=== PATIENT | male | born 1940 | race African-American/Black ===

== ENCOUNTER 2016-08-27 11:32 | Emergency (ER) | payer OTHER, MEDICAID ==
[2016-08-27 11:38] VITALS: BP 131/69; BMI 30.1
--- NOTE | 2016-08-27 12:12 | DR.EXTPAIN ---
HPI - Time seen Time seen: 12:05 - PCP Primary Care Physician: FANI - HPI Comment HPI Comment: NO TRAUMA. GETTING WORSE. - Complaint/Symptoms Chief Complaint Doctor Comments: LEFT ELBOW PAIN, UNABLE TO RAISE ELBOW UP. Chief Complaint:: PT. C/O LEFT ARM PAIN. PT. DENIES INJURY. PAIN IS SHARP IN NATURE AND RADIATES DOWN TO HAND. PT. STATES HE THOUGHT IT WOULD GO AWAY BUT IT KEEPS GETTING WORSE. - Nurses notes reviewed Nurses Notes Review: Yes - Source History Provided: Patient, Significant Other - Mode of arrival Mode of Arrival: Wheelchair - Timing Onset of Chief Complaint: 08/13/16 - Context History of: Arthritis - Associated signs and symptoms Associated Signs and Symptoms: Pain, Swelling PMH - PMH Past Medical History: Yes Past Medical History: GERD Past Medical History Comment: CHRONIC BACK PAIN Past Surgical History: Yes Surgical History: Appendectomy, Other - Family History History of Family Medical Conditions: Yes Family Medical History: Cancer, [place] - Social History Does patient currently use any type of tobacco product: No Have you used tobacco products in the last 12 months: No Type of Tobacco Use: None Does any household member use tobacco: No Alcohol Use: None Do you use any recreational Drugs:: No Lives With: Significant Other Lives Where: Home - infectious screening In the last 2 months have you had wt loss of >10#?: NO Have you had fever, night sweats or hemotysis?: No Have you traveled outside the country in the last 6 months?: No Isolation: Standard ROS - Review of Systems Constitutional: No Symptoms Reported Eyes: No Symptoms Reported ENTM: No Symptoms Reported Respiratoy: No Symptoms Reported Cardiovascular: No Symptoms Reported Gastrointestinal/Abdominal: No Symptoms Reported Genitourinary: No Symptoms Reported Neurological: No Symptoms Reported Musculoskeletal: Left, Elbow Integumentary: No Symptoms Reported Hematologic/Lymphatic: No Symptoms Reported Endocrine: No Symptoms Reported All Other Systems: Reviewed and Negative PE - Vital Signs Vitals: Temperature 98.9 F Pulse Rate 81 Respiratory Rate 16 Blood Pressure 131/69 O2 Sat by Pulse Oximetry 96 - General Limitations: No Limitations General Appearance: Alert - Head Head Exam: Normal Inspection - Eyes Eye exam: Normal Appearance - ENT ENT Exam: Normal External Ear Exam - Neck Neck Exam: Trachea Midline - Chest Chest Inspection: Symmetric Chest Wall Rise - Respiratory Respiratory Exam: Normal Lung Sounds Bilat Respiratory Exam: Bilateral Clear to Auscultation - Cardiovascular Cardiovascular Exam: Regular Rate, Normal Rhythm, Normal Heart Sounds - Abdominal Exam Abdominal Exam: Normal Bowel Sounds, Soft. negative: Tenderness - Extremities Extremities Exam: Tenderness (LT ELBOW), Joint Swelling (LEFT ELBOW) - Upper Extremities Elbow Exam: Tenderness (LT), Swelling, Erythema. negative: Full ROM (DECREAS, LT ELBOW) - Lower Extremities Neurovascular/Tendon Exam: Normal Capillary Refill Gait Exam: Observed and Normal - Back Back Exam: Normal Inspection - Neurological Neurological Exam: Alert, Oriented X3 - Skin Skin Exam: Erythema MDM - Differential Diagnosis Differential Diagnosis: Contusion, Fracture, Sprain Course - Treatment Treatment: SEE ORDERS - Education/Counseling Education/Counseling: Patient, Education Educated On: Treatment, Diagnosis, Needs for Follow Up ROR - XRAY XRAY Interpreted by: Radiologist XRAY Findings: REPORT DISCUSS WITH PATIENT - Diagnosis Discharge Problem: Acute arthritis Bursitis of elbow Qualifiers: Elbow bursitis location: radiohumeral bursitis Laterality: left Qualified Code( s): M70.32 - Other bursitis of elbow, left elbow - Discharge Plan Disposition: HOME, SELF-CARE Condition: Stable Prescriptions: Tramadol HCl [Synapryn Fusepaq (compounding kit)] 50 mg PO BID PRN #14 tab PRN Reason: Pain - Follow ups/Referrals Follow ups/Referrals: DIONNE MOHR [Primary Care Provider] - 3 days - Instructions Instructions: Elbow Bursitis, Arthritis, [id number] Additional Instructions: RETURN TO ED IF WORSE.
[2016-08-27] MEDS ORDERED: TORADOL 60 MG VIAL ONE (12:20)
[2016-08-27] MEDS ORDERED: NORFLEX INJ ONE (12:20)
[2016-08-27] MEDS: NORFLEX INJ IM PRN (12:29)
[2016-08-27] MEDS: TORADOL 60 MG VIAL IM ONE (12:30)
--- NOTE | 2016-08-27 13:00 | RAD ---
HISTORY: Left arm pain Study: Three views left elbow Comparison: None Findings: Normal alignment. No acute fracture or dislocation. The soft tissues are unremarkable. No joint eff usion or abnormal soft tissue swelling. There are degenerative changes at the left elbow joint with prominent enthesophyte at the triceps insertion. IMPRESSION: 1. Degenerative changes of the left elbow without acute fracture. Reported By:
== END 2016-08-27 13:29 | disposition home or self-care (01) ==
LOC: ER 11:45
DX: M13.879 Other specified arthritis, unspecified ankle and foot (principal); M70.32 Other bursitis of elbow, left elbow
CPT/HCPCS: 73070; 96372; 99282; 99283; J1885; J2360

== ENCOUNTER 2016-09-18 22:45 | Emergency (ER) | payer OTHER, MEDICAID ==
[2016-09-18 22:49] VITALS: BP 167/88; BMI 29.2
--- NOTE | 2016-09-18 23:15 | DR.TOOTHHP ---
HPI - Time Seen Time seen: 23:12 - Primary Care Physician Primary Care Physician: tasneem fall - Complaints Chief Complaint:: right bottom back tooth pain times 1 hour - Source History Provided: Patient - Mode of Arrival Mode of Arrival: Wheelchair - Timing Onset of Chief Complaint: 09/18/16 PMH - PMH Past Medical History: Yes Past Medical History: GERD Past Surgical History: Yes Surgical History: Appendectomy, Other - Family History History of Family Medical Conditions: Yes Family Medical History: Cancer, [place] - Social History Type of Tobacco Use: None Alcohol Use: None Do you use any recreational Drugs:: No Lives With: Significant Other Lives Where: Home - infectious screening Have you traveled outside the country in the last 6 months?: No Isolation: Standard ROS - Review of Systems Constitutional: No Symptoms Reported Eyes: No Symptoms Reported ENTM: Mouth Pain Respiratoy: No Symptoms Reported Cardiovascular: No Symptoms Reported Gastrointestinal/Abdominal: No Symptoms Reported Genitourinary: No Symptoms Reported Neurological: No Symptoms Reported Musculoskeletal: No Symptoms Reported Integumentary: No Symptoms Reported Hematologic/Lymphatic: No Symptoms Reported Endocrine: No Symptoms Reported Psychiatric: No Symptoms Reported All Other Systems: Reviewed and Negative PE - Vital Signs Vitals: Temperature 98.4 F Pulse Rate 73 Respiratory Rate 20 Blood Pressure 167/88 O2 Sat by Pulse Oximetry 99 - General Limitations: No Limitations General Appearance: Alert, In No Apparent Distress - Head Head Exam: Normal Inspection, Atraumatic - Eyes Eye exam: Normal Appearance, PERRL, EOMI - ENT ENT Exam: Normal Exam External Ear Exam: Normal External Inspection TM/Canal Exam: Bilateral Normal Nose Exam: Normal Nose Exam Mouth Exam: Normal Inspection Teeth Exam: Fractured Tooth # (32), Dental Tenderness # (32) Throat Exam: Normal Inspection - Neck Neck Exam: Normal Inspection, Full ROM - Chest Chest Inspection: Normal Inspection - Respiratory Respiratory Exam: Normal Lung Sounds Bilat Respiratory Exam: Bilateral Clear to Auscultation - Cardiovascular Cardiovascular Exam: Regular Rate, Normal Rhythm - Abdominal Exam Abdominal Exam: Normal Inspection Abdominal Tenderness: negative: RUQ, RLQ, LUQ, LLQ, Epigastrium, Suprapubic, Diffuse, Mild, Moderate, Severe, Other - Extremities Extremities Exam: Normal Inspection - Back Back Exam: Normal Inspection - Neurologic Neurological Exam: Alert, Oriented X3, CN II-XII Intact - Psychiatric Psychiatric Exam: Normal Affect - Skin Skin Exam: Warm, Dry, Intact - Diagnosis Discharge Problem: Chronic dental pain - Discharge Plan Condition: Stable - Follow ups/Referrals Follow ups/Referrals: NFD,None [Primary Care Provider] - 3 days - Instructions
[2016-09-18] MEDS ORDERED: TORADOL 60 MG VIAL IM ONE (23:17)
[2016-09-18] MEDS ORDERED: AMOXIL CAP 500 MG PO ONE ×2 (23:17→23:21)
[2016-09-18] MEDS ORDERED: TORADOL 60 MG VIAL ONE (23:21)
== END 2016-09-18 23:45 | disposition home or self-care (01) ==
LOC: ER 22:45
DX: K08.89 Other specified disorders of teeth and supporting structures (principal)
CPT/HCPCS: 96372; 99282; J1885

== ENCOUNTER → 2016-11-23 | Outpatient (CLI) | payer OTHER, MEDICAID ==
[2016-11-23 09:10] LABS: BASOPHILS % (AUTO) 0.4 % (0.2-1.0); EOSINOPHILS # (AUTO) 0.2 x10^3/uL (0.0-0.2); EOSINOPHILS % (AUTO) 2.5 % (0.9-2.9); HEMATOCRIT 37.5 % (42.0-54.0); HEMOGLOBIN 12.5 g/dL (13.5-18.0); LYMPHOCYTES # (AUTO) 2.9 X10^3/uL (1.3-2.9); LYMPHOCYTES % (AUTO) 39.6 % (21.0-51.0); MEAN CORPUSCULAR HEMOGLOBIN 28.1 pg (27.0-34.0); MEAN CORPUSCULAR HGB CONC 33.5 g/dL (33.0-35.0); MEAN PLATELET VOLUME 10.3 fL (7.4-11.0); MONOCYTES # (AUTO) 0.6 x10^3/uL (0.3-0.8); MONOCYTES % (AUTO) 8.3 % (0.0-13.0); NEUTROPHILS # (AUTO) 3.6 x10^3/uL (2.2-4.8); NEUTROPHILS % (AUTO) 49.2 % (42.0-75.0); PLATELET COUNT 158 X10^3/uL (150.0-450.0); RED BLOOD COUNT 4.46 X10^6/uL (4.7-6.0); RED CELL DISTRIBUTION WIDTH 13.8 % (11.6-16.5); WHITE BLOOD COUNT 7.2 X10^3/uL (3.6-10.0)
[2016-11-23 09:17] LABS: HEMOGLOBIN A1C 6.2 % (4.5-6.2)
[2016-11-23 09:22] LABS: ALANINE AMINOTRANSFERASE 70 Units/L (12-78); ALBUMIN 3.3 g/dL (3.4-5.0); ALKALINE PHOSPHATASE 124 Units/L (46-116); ASPARTATE AMINO TRANSFERASE 34 Units/L (15-37); BLOOD UREA NITROGEN 19 mg/dL (7-18); CALCIUM 9.2 mg/dL (8.5-10.1); CARBON DIOXIDE 31.1 mmol/L (21-32); CHLORIDE 102 mmol/L (98-107); CHOL/HDL RATIO 5.7 (0.0-5.0); CHOLESTEROL 250 mg/dL (0-200); COR CA(FOR HYPOALB) 9.8 mg/dL (8.5-10.1); COR NA(FOR HYPERGLY) 140 mmol/L (136-145); CREATININE 1.42 mg/dL (0.70-1.30); GLUCOSE 134 mg/dL (65-99); HDL CHOLESTEROL 44 mg/dL (40-60); SODIUM 139 mmol/L (136-145); TOTAL PROTEIN 7.2 g/dL (6.4-8.2); TRIGLYCERIDES 208 mg/dL (0-150); eGFR BLACK RACES > 60 (>60); eGFR NON BLACK RACES 52 (>60)
[2016-11-23 09:51] LABS: TOTAL PSA 1.85 ng/mL (0.13-4.0)
== END ==
LOC: LAB 08:30
PROVIDERS: ATTEND Nurse Practitioner
DX: R73.09 Other abnormal glucose (principal); E78.00 Pure hypercholesterolemia, unspecified; R53.83 Other fatigue; N40.1 Benign prostatic hyperplasia with lower urinary tract symptoms; E55.9 Vitamin D deficiency, unspecified
CPT/HCPCS: 36415; 80053; 80061; 82306; 82607; 83036; 84153; 85025

== ENCOUNTER 2017-02-19 08:50 | Day surgery (SDC) | payer OTHER, MEDICAID ==
[2017-02-19] MEDS ORDERED: NS 500 ML IV 500 ML IV ONE (09:30)
[2017-02-19] MEDS ORDERED: TETRACAINE 0.5% OPHTH 1 DOSE AFFEYE ONE ×2 (09:50→13:41)
[2017-02-19] MEDS ORDERED: VIGAMOX 0.5% OPHTH 1 DOSE AFFEYE ONE ×6 (09:51→14:00)
[2017-02-19] MEDS ORDERED: PROLENSA OPHTH 1 DOSE AFFEYE ONE (10:03)
[2017-02-19] MEDS ORDERED: ALPHAGAN-P OPHTH 1 DOSE AFFEYE ONE (10:04)
[2017-02-19] MEDS ORDERED: VISINE-A OPHTH 1 DOSE AFFEYE ONE (10:05)
[2017-02-19] MEDS ORDERED: AK-DILATE 2.5% OPHTH 1 DOSE OP ONE ×6 (10:06→10:11)
[2017-02-19] MEDS ORDERED: CYCLOGYL 1% OPHTH 1 DOSE OP ONE ×6 (10:06→10:11)
[2017-02-19] MEDS ORDERED: MYDRIACIL OPHTH 1 DOSE AFFEYE ONE ×6 (10:06→10:11)
[2017-02-19] MEDS ORDERED: KENALOG INJ 40 MG IM ONE ×2 (13:38→13:59)
[2017-02-19] MEDS ORDERED: BETADINE OPHTH SOLN 5% EACHEYE ONE (13:42)
[2017-02-19] MEDS ORDERED: ADRENALINE CHL INJ IJ ONE (13:50)
[2017-02-19] MEDS ORDERED: XYLOCAINE-MPF 1% IJ ONE (13:50)
[2017-02-19] MEDS ORDERED: BSS OPHTH (PLAIN) 500 ML with VANCOMYCIN HCL 500 MG VIAL 25 MG, ADRENALINE CHL INJ 1 MG IR ONE ×3 (13:50)
[2017-02-19] MEDS ORDERED: DUOVISC IO ONE (13:50)
[2017-02-19 18:08] VITALS: BP 146/80
== END 2017-02-19 14:30 | disposition home or self-care (01) ==
LOC: SURG1 08:50
PROVIDERS: ATTEND Ophthalmology
PROC: 08DK3ZZ Extraction of Left Lens, Percutaneous Approach (ICD-10-PCS; principal; 2017-02-19 19:30)
PROC: 08U107Z Supplement of Left Eye with Autologous Tissue Substitute, Open Approach (ICD-10-PCS; principal; 2017-02-19 19:30)
PROC: 08RK3JZ Replacement of Left Lens with Synthetic Substitute, Percutaneous Approach (ICD-10-PCS; principal; 2017-02-19 19:30)
PROC: 08BTXZX Excision of Left Conjunctiva, External Approach, Diagnostic (ICD-10-PCS; principal; 2017-02-19 19:30)
DX: H25.12 Age-related nuclear cataract, left eye (principal); H25.012 Cortical age-related cataract, left eye; H11.002 Unspecified pterygium of left eye
CPT/HCPCS: 99100; A4217; J0170; J3301; J3370

== ENCOUNTER 2017-03-12 08:24 | Day surgery (SDC) | payer OTHER, MEDICAID ==
[2017-03-12] MEDS ORDERED: TETRACAINE 0.5% OPHTH 1 DOSE AFFEYE ONE ×2 (08:30→12:17)
[2017-03-12] MEDS ORDERED: VIGAMOX 0.5% OPHTH 1 DOSE AFFEYE ONE ×5 (08:35→12:37)
[2017-03-12] MEDS ORDERED: PROLENSA OPHTH 1 DOSE AFFEYE ONE (08:46)
[2017-03-12] MEDS ORDERED: ALPHAGAN-P OPHTH 1 DOSE AFFEYE ONE (08:47)
[2017-03-12] MEDS ORDERED: CYCLOGYL 1% OPHTH 1 DOSE OP ONE ×3 (08:48→08:50)
[2017-03-12] MEDS ORDERED: MYDRIACIL OPHTH 1 DOSE AFFEYE ONE ×3 (08:48→08:50)
[2017-03-12] MEDS ORDERED: AK-DILATE 2.5% OPHTH 1 DOSE OP ONE ×3 (08:49→08:50)
[2017-03-12] MEDS ORDERED: NS 500 ML IV 500 ML IV ONE (09:58)
[2017-03-12] MEDS ORDERED: BETADINE OPHTH SOLN 5% EACHEYE ONE (12:17)
[2017-03-12] MEDS ORDERED: BSS OPHTH (PLAIN) 500 ML with VANCOMYCIN HCL 500 MG VIAL 25 MG, ADRENALINE CHL INJ 1 MG IR ONE ×3 (12:21)
[2017-03-12] MEDS ORDERED: XYLOCAINE-MPF 1% IJ ONE (12:21)
[2017-03-12] MEDS ORDERED: DUOVISC IO ONE (12:21)
[2017-03-12] MEDS ORDERED: ADRENALINE CHL INJ IJ ONE (12:21)
[2017-03-12] MEDS ORDERED: KENALOG INJ 40 MG IM ONE ×2 (12:28→12:37)
[2017-03-12 13:35] VITALS: BP 133/82
== END 2017-03-12 13:00 | disposition home or self-care (01) ==
LOC: SURG1 08:24
PROVIDERS: ATTEND Ophthalmology
PROC: 08BSXZX Excision of Right Conjunctiva, External Approach, Diagnostic (ICD-10-PCS; principal; 2017-03-12 16:30)
PROC: 08RJ3JZ Replacement of Right Lens with Synthetic Substitute, Percutaneous Approach (ICD-10-PCS; principal; 2017-03-12 16:30)
PROC: 08DJ3ZZ Extraction of Right Lens, Percutaneous Approach (ICD-10-PCS; principal; 2017-03-12 16:30)
PROC: 08U007Z Supplement of Right Eye with Autologous Tissue Substitute, Open Approach (ICD-10-PCS; principal; 2017-03-12 16:30)
DX: H25.11 Age-related nuclear cataract, right eye (principal); H25.011 Cortical age-related cataract, right eye; H11.001 Unspecified pterygium of right eye
CPT/HCPCS: 99100; A4217; J0170; J3301; J3370

== ENCOUNTER 2017-06-12 21:55 | Emergency (ER) | payer OTHER, MEDICAID ==
[2017-06-12 22:12] VITALS: BP 147/74; BMI 33.4
[2017-06-12] MEDS ORDERED: DUONEB 0.5 MG/3 MG NEB ONE (23:01)
[2017-06-12] MEDS ORDERED: DUONEB 0.5 MG/3 MG ONE (23:02)
--- NOTE | 2017-06-12 23:28 | RAD ---
Chest, one view Indication: Cough, shortness of breath Comparison: CT chest 12/28/2014 Findings: Heart size is normal. No focal consolidation, significant effusion or pneumothorax is ident ified. No acute osseous abnormality is seen. Impression: No acute cardiopulmonary abnormality. Reported By:
[2017-06-12] MEDS ORDERED: SOLU-Medrol 40 MG VIAL IM ONE (23:57)
--- NOTE | 2017-06-12 23:58 | DR.GENAD ---
HPI - PCP Primary Care Physician: FANI - Complaint/Symptoms Chief Complaint Doctors Comments: Chest congestion, productive cough x 4 days. he was short of breath also but denies chesp pain. He admits to a hx. of COPD and has had no improvement with use of his home inhalers, Chief Complaint:: COUGHING COLD CONGESTION SINCE SATURDAY - Nurses notes reviewed Nurses Notes Review: Yes - Source History Provided: Patient - Mode of Arrival Mode of Arrival: Wheelchair - Timing Onset of Chief Complaint: 06/08/17 PMH - PMH Past Medical History: Yes Past Medical History: COPD, GERD Past Medical History Comment: CHRONIC BACK PAIN Past Surgical History: No Surgical History: Appendectomy, Other - Family History History of Family Medical Conditions: Yes Family Medical History: Cancer, [place] - Social History Do you use any recreational Drugs:: No Lives With: Alone, Family Lives Where: Home - infectious screening In the last 2 months have you had wt loss of >10#?: NO Have you had fever, night sweats or hemotysis?: No Have you traveled outside the country in the last 6 months?: No Isolation: Standard ROS - Review of Systems Constitutional: No Symptoms Reported Eyes: No Symptoms Reported ENTM: No Symptoms Reported Respiratoy: Productive Cough, Short of Breath Cardiovascular: No Symptoms Reported Gastrointestinal/Abdominal: No Symptoms Reported Genitourinary: No Symptoms Reported Neurological: No Symptoms Reported Musculoskeletal: No Symptoms Reported Integumentary: No Symptoms Reported Hematologic/Lymphatic: No Symptoms Reported Endocrine: No Symptoms Reported Psychiatric: No Symptoms Reported All Other Systems: Reviewed and Negative PE - Vital Signs Vitals: Temperature 97.2 F Pulse Rate 75 Respiratory Rate 24 Blood Pressure 147/74 O2 Sat by Pulse Oximetry 98 - General Limitations: No Limitations General Appearance: Alert, In No Apparent Distress - Head Head Exam: Normal Inspection - Eyes Eye exam: Normal Appearance - ENT ENT Exam: Normal Exam - Neck Neck Exam: Normal Inspection, Full ROM, Trachea Midline - Chest Chest Inspection: Normal Inspection - Respiratory Respiratory Exam: Bilateral Clear to Auscultation, Bilateral Rhonchi - Cardiovascular Cardiovascular Exam: Regular Rate, Normal Rhythm, +S1, +S2 - Abdominal Exam Abdominal Exam: Normal Inspection, Normal Bowel Sounds, Soft - Extremities Extremities Exam: Normal Inspection - Back Back Exam: Normal Inspection - Neurologic Neurological Exam: Alert, Oriented X3, CN II-XII Intact - Psychiatric Psychiatric Exam: Normal Affect, Normal Mood - Skin Skin Exam: Warm, Dry, Intact ROR - XRAY XRAY Interpreted by: Self (suggestive of COPD, no infiltrates noted.) - Diagnosis Discharge Problem: COPD (chronic obstructive pulmonary disease) with acute bronchitis - Discharge Plan Disposition: HOME, SELF-CARE Condition: Stable - Follow ups/Referrals Follow ups/Referrals: DIONNE MOHR [Primary Care Provider] - 3 days - Instructions Instructions: Chronic Obstructive Pulmonary Disease, [id number]
[2017-06-13] MEDS ORDERED: SOLU-Medrol 40 MG VIAL ONE (00:02)
== END 2017-06-13 00:10 | disposition home or self-care (01) ==
LOC: ER 21:55
DX: J44.1 Chronic obstructive pulmonary disease with (acute) exacerbation (principal)
CPT/HCPCS: 71045; 94640; 96372; 99282; J2920; J7620

== ENCOUNTER 2017-06-15 21:33 | Emergency (ER) | payer OTHER, MEDICAID ==
[2017-06-15 22:03] VITALS: BP 171/78; BMI 30.7
[2017-06-15] MEDS ORDERED: SOLU-Medrol 125 MG VIAL IVP ONE (22:07)
[2017-06-15] MEDS ORDERED: DUONEB 0.5 MG/3 MG NEB ONE ×2 (22:07→23:39)
--- NOTE | 2017-06-15 22:11 | DR.GENAD ---
HPI - PCP Primary Care Physician: FANI - Complaint/Symptoms Chief Complaint Doctors Comments: Patient states he is having problems breathing and catching his breath getting worst tonight. States he was in the emergency room two nights ago and was given a breathing treatment and one antibiotics and he was taking albuterol inhaler at home but he ran out today. States he was trying to wait unitl next week to see his doctor but he could not wait. States he gets SOB when he tries to do anything around the house. He has a cold and cough but denies fever or chills. He denies chest pain. Chief Complaint:: CAN'T BREATHE Self Treatment fo Chief Complaint: ALBUTERAL LAST TAKEN 30-60MINS AGO - Nurses notes reviewed Nurses Notes Review: Yes - Source History Provided: Patient - Mode of Arrival Mode of Arrival: Ambulatory - Timing Onset of Chief Complaint: 06/15/17 Came on: Gradually - Duration Duration: Constant How lon Duration: Days - Location Location: SOB and wheezing - Severity Severity: Moderate, Severe - Modifying Factors Worsens:: exertion Improves:: nothing PMH - PMH Past Medical History: Yes Past Medical History: COPD, GERD Past Surgical History: Yes Surgical History: Appendectomy, Other - Family History History of Family Medical Conditions: Yes Family Medical History: Cancer, [place] - Social History Does patient currently use any type of tobacco product: No Have you used tobacco products in the last 12 months: No Type of Tobacco Use: None How many years tobacco product used: 25 Does any household member use tobacco: No Alcohol Use: None Do you use any recreational Drugs:: No Lives With: Friend Lives Where: Home - infectious screening In the last 2 months have you had wt loss of >10#?: NO Have you had fever, night sweats or hemotysis?: No Have you traveled outside the country in the last 6 months?: No Isolation: Standard ROS - Review of Systems Constitutional: No Symptoms Reported, Weakness, Fatigue. negative: See HPI, Chills, Diaphoresis, Fever, Malaise, Irritable, Loss of Appetite, Other Eyes: No Symptoms Reported ENTM: No Symptoms Reported Respiratoy: Non-Productive Cough, Short of Breath, Wheezing. negative: No Symptoms Reported, See HPI, Productive Cough, Moist Cough, Dry Cough, Hacking Cough, Barking Cough, Brassy Cough, Orthopnea, Stridor, Hemoptysis, Other Cardiovascular: No Symptoms Reported. negative: See HPI, Chest Pain, Edema, Palpitations, Syncope, Cyanosis, Skin Mottling, Other Gastrointestinal/Abdominal: No Symptoms Reported. negative: See HPI, Abdominal Pain, Constipation, Diarrhea, Nausea, Vomiting, Food Intolerance, Other Genitourinary: No Symptoms Reported Neurological: No Symptoms Reported. negative: Problems Walking (wheel chair) Musculoskeletal: No Symptoms Reported Integumentary: No Symptoms Reported. negative: See HPI, Change in Color, Change in Hair/Nails, Dryness, Lesions, Lumps, Rash, Itching, Wound, Bruises, Juandice, Other Hematologic/Lymphatic: No Symptoms Reported. negative: See HPI, Anemia, Blood Clots, Easy Bleeding, Easy Bruising, Swollen Glands, Lymphadenopathy, Other Endocrine: No Symptoms Reported Psychiatric: No Symptoms Reported. negative: See HPI, Anxiety, Depression, Hallucinations, Excessive crying, Suicidal, Other PE - Vital Signs Vitals: Temperature 97.8 F Pulse Rate 55 Respiratory Rate 34 Blood Pressure 171/78 O2 Sat by Pulse Oximetry 94 - General Limitations: No Limitations General Appearance: Alert, In Distress (moderate) - Head Head Exam: Normal Inspection, Atraumatic, Normocephalic - Eyes Eye exam: Normal Appearance, PERRL, EOMI. negative: Scleral Icterus, Conjunctival Injection, Nystagmus, Miosis, Mydrasis, Periorbital Swelling, Periorbital Tenderness, Other - ENT ENT Exam: Normal Exam, Normal Oropharynx, Normal External Ear Exam, Mucous Membranes Moist, TM's Normal Bilaterally (severe dental caries) External Ear Exam: Normal External Inspection TM/Canal Exam: Bilateral Normal Nose Exam: Normal Nose Exam Mouth Exam: Normal Inspection Throat Exam: Normal Inspection - Neck Neck Exam: Normal Inspection, Full ROM, Trachea Midline - Chest Chest Inspection: Normal Inspection, Symmetric Chest Wall Rise - Respiratory Respiratory Exam: Normal Lung Sounds Bilat, Prolonged Expiratory Phase, Respiratory Distress (diffuse rhonchi bilaterally) Respiratory Exam: Bilateral Wheezing, Bilateral Rhonchi, Bilateral Decreased Breath Sounds - Cardiovascular Cardiovascular Exam: Regular Rate, Normal Rhythm, Normal Heart Sounds. negative : Bradycardia, Tachycardia, Irregular Rhythm, Systolic Murmur, Diastolic Murmur , Rubs, Gallop, Clicks, JVD, +S1, +S2, +S3, +S4, Other - Abdominal Exam Abdominal Exam: Normal Inspection, Normal Bowel Sounds, Soft. negative: Distention, Tenderness, Guarding, Rebound, Rigidity, Dimnished Bowel Sounds, Hyperactive Bowel Sounds, Hypoactive Bowel Sounds, Organomegaly, Trauma, Incision, Ascites, Mass, Bruit, Pulsatile Mass, Hernia, Other Abdominal Tenderness: negative: RUQ, RLQ, LUQ, LLQ, Epigastrium, Suprapubic, Diffuse, Mild, Moderate, Severe, Other - Extremities Extremities Exam: Normal Inspection, Full ROM, Normal Capillary Refill, Edema ( trace to 1+ pedal) - Back Back Exam: Normal Inspection, Full ROM - Neurologic Neurological Exam: Alert, Oriented X3, CN II-XII Intact, Reflexes Normal. negative: Normal Gait (gait not tested in motorized wheel chair) - Psychiatric Psychiatric Exam: Normal Affect, Normal Mood - Skin Skin Exam: Warm, Dry, Intact, Normal Color ROR - Labs Reviewed Laboratory Results Reviewed?: Yes (all labs and x-ray results reviewed and discussed with patient) Result Diagrams: 06/15/17 22:14 06/15/17 22:14 Laboratory: WBC 11.2 X10^3/uL (3.6-10.0) H 06/15/17 22:14 RBC 4.19 X10^6/uL (4.7-6.0) L 06/15/17 22:14 Hgb 11.6 g/dL (13.5-18.0) L 06/15/17 22:14 Hct 35.7 % (42.0-54.0) L 06/15/17 22:14 MCV 85.2 fL (80.0-100.0) 06/15/17 22:14 MCH 27.7 pg (27.0-34.0) 06/15/17 22:14 MCHC 32.5 g/dL (33.0-35.0) L 06/15/17 22:14 RDW 13.6 % (11.6-16.5) 06/15/17 22:14 Plt Count 200 X10^3/uL (150.0-450.0) 06/15/17 22:14 MPV 10.8 fL (7.4-11.0) 06/15/17 22:14 Neut % 56.1 % (42.0-75.0) 06/15/17 22:14 Lymph % 32.0 % (21.0-51.0) 06/15/17 22:14 [place] % 8.9 % (0.0-13.0) 06/15/17 22:14 Eos % 2.4 % (0.9-2.9) 06/15/17 22:14 Baso % 0.6 % (0.2-1.0) 06/15/17 22:14 Neut # 6.3 x10^3/uL (2.2-4.8) H 06/15/17 22:14 Lymph # 3.6 X10^3/uL (1.3-2.9) H 06/15/17 22:14 [place] # 1.0 x10^3/uL (0.3-0.8) H 06/15/17 22:14 Eos # 0.3 x10^3/uL (0.0-0.2) H 06/15/17 22:14 Baso # 0.1 X10^3/uL (0.0-0.1) 06/15/17 22:14 Absolute Nucleated RBC 0.1 /100WBC 06/15/17 22:14 Sodium 138 mmol/L (136-145) 06/15/17 22:14 Corrected Sodium TNP 06/15/17 22:14 Potassium 4.1 mmol/L (3.5-5.1) 06/15/17 22:14 Chloride 103 mmol/L (98-107) 06/15/17 22:14 Carbon Dioxide 32.0 mmol/L (21-32) 06/15/17 22:14 BUN 21 mg/dL (7-18) H 06/15/17 22:14 Creatinine 1.46 mg/dL (0.70-1.30) H 06/15/17 22:14 Est GFR (MDRD) Af Amer > 60 (>60) 06/15/17 22:14 Est GFR (MDRD) Non-Af 50 (>60) L 06/15/17 22:14 Glucose 94 mg/dL (65-99) 06/15/17 22:14 Calcium 9.1 mg/dL (8.5-10.1) 06/15/17 22:14 - XRAY XRAY Interpreted by: Radiologist (CXR; No acute cardiopulmonary changes noted) - Diagnosis Discharge Problem: COPD with acute exacerbation, Bronchitis, COPD (chronic obstructive pulmonary disease) with acute bronchitis - Discharge Plan Disposition: 01 HOME, SELF-CARE Condition: Stable Prescriptions: Albuterol Sulfate [Proair Hfa] 8.5 gm IH Q4-6H PRN #1 hfa.aer.[id number] PRN Reason: Budesonide-Formoterol [SYMBICORT INH 160/4.5 mcg] 2 puff IN Q12H #1 inh Ciprofloxacin HCl [CIPRO 500 MG TAB *] 500 mg PO Q12H #20 tab Prednisone [Prednisone Tab 20 mg] 40 mg PO QAM #7 tab - Follow ups/Referrals Follow ups/Referrals: JUAN PABLO,Inez [Primary Care Provider] - 3 days DIONNA PHILLIPS [STAFF PHYSICIAN] - 3 days - Instructions Instructions: Chronic Obstructive Pulmonary Disease Exacerbation, Hnpy-[id number] , Acute Bronchitis, [id number], Metered Dose Inhaler (No Spacer Used)
[2017-06-15] MEDS ORDERED: DUONEB 0.5 MG/3 MG ONE ×2 (22:13→23:43)
[2017-06-15 22:25] LABS: BASOPHILS # (AUTO) 0.1 X10^3/uL (0.0-0.1); BASOPHILS % (AUTO) 0.6 % (0.2-1.0); EOSINOPHILS # (AUTO) 0.3 x10^3/uL (0.0-0.2); EOSINOPHILS % (AUTO) 2.4 % (0.9-2.9); HEMATOCRIT 35.7 % (42.0-54.0); HEMOGLOBIN 11.6 g/dL (13.5-18.0); LYMPHOCYTES # (AUTO) 3.6 X10^3/uL (1.3-2.9); MEAN CORPUSCULAR HEMOGLOBIN 27.7 pg (27.0-34.0); MEAN CORPUSCULAR HGB CONC 32.5 g/dL (33.0-35.0); MEAN CORPUSCULAR VOLUME 85.2 fL (80.0-100.0); MEAN PLATELET VOLUME 10.8 fL (7.4-11.0); MONOCYTES % (AUTO) 8.9 % (0.0-13.0); NEUTROPHILS # (AUTO) 6.3 x10^3/uL (2.2-4.8); NEUTROPHILS % (AUTO) 56.1 % (42.0-75.0); PLATELET COUNT 200 X10^3/uL (150.0-450.0); RED BLOOD COUNT 4.19 X10^6/uL (4.7-6.0); RED CELL DISTRIBUTION WIDTH 13.6 % (11.6-16.5); WHITE BLOOD COUNT 11.2 X10^3/uL (3.6-10.0)
[2017-06-15] MEDS ORDERED: SOLU-Medrol 125 MG VIAL ONE (22:25)
--- NOTE | 2017-06-15 22:33 | RAD ---
AP Chest Indication: Shortness of breath Comparison: 06/13/2017 Findings: The trachea is midline. The cardiac silhouette is unremarkable. The lungs are clear without focal i nfiltrate or effusion. The bony thorax is unremarkable. IMPRESSION: 1. No acute cardiopulmonary abnormality. Reported By:
[2017-06-15 22:39] LABS: BLOOD UREA NITROGEN 21 mg/dL (7-18); CALCIUM 9.1 mg/dL (8.5-10.1); CHLORIDE 103 mmol/L (98-107); CREATININE 1.46 mg/dL (0.70-1.30); SODIUM 138 mmol/L (136-145); eGFR BLACK RACES > 60 (>60); eGFR NON BLACK RACES 50 (>60)
[2017-06-15] MEDS ORDERED: LEVAQUIN TAB 500 MG ONE (23:40)
[2017-06-15] MEDS ORDERED: LEVAQUIN TAB 500 MG PO SCH (23:45)
== END 2017-06-16 00:12 | disposition home or self-care (01) ==
LOC: ER 21:33
DX: J44.1 Chronic obstructive pulmonary disease with (acute) exacerbation (principal); J40 Bronchitis, not specified as acute or chronic
CPT/HCPCS: 36415; 71045; 80048; 85025; 94640; 96365; 96374; 99282; 99283; A4222; J2930; J7620

== ENCOUNTER 2018-03-09 18:56 | Inpatient (IN) ==
[2018-03-09] MEDS ORDERED: DUONEB 0.5 MG/3 MG ONE (19:32)
[2018-03-09] MEDS ORDERED: LASIX IVP ONE ×2 (19:42→19:43)
[2018-03-09] MEDS ORDERED: DUONEB 0.5 MG/3 MG NEB ONE (19:51)
[2018-03-09 20:12] LABS: BASOPHILS # (AUTO) 0.1 X10^3/uL (0.0-0.1); BASOPHILS % (AUTO) 0.9 % (0.2-1.0); EOSINOPHILS # (AUTO) 0.3 x10^3/uL (0.0-0.2); EOSINOPHILS % (AUTO) 2.9 % (0.9-2.9); HEMOGLOBIN 12.3 g/dL (13.5-18.0); LYMPHOCYTES # (AUTO) 2.3 X10^3/uL (1.3-2.9); LYMPHOCYTES % (AUTO) 22.7 % (21.0-51.0); MEAN CORPUSCULAR HEMOGLOBIN 28.6 pg (27.0-34.0); MEAN CORPUSCULAR HGB CONC 33.2 g/dL (33.0-35.0); MEAN CORPUSCULAR VOLUME 86.2 fL (80.0-100.0); MEAN PLATELET VOLUME 11.3 fL (7.4-11.0); MONOCYTES % (AUTO) 9.2 % (0.0-13.0); NEUTROPHILS # (AUTO) 6.7 x10^3/uL (2.2-4.8); NEUTROPHILS % (AUTO) 64.3 % (42.0-75.0); PLATELET COUNT 163 X10^3/uL (150.0-450.0); RED BLOOD COUNT 4.29 X10^6/uL (4.7-6.0); RED CELL DISTRIBUTION WIDTH 14.7 % (11.6-16.5); WHITE BLOOD COUNT 10.4 X10^3/uL (3.6-10.0)
[2018-03-09 20:23] LABS: BLOOD UREA NITROGEN 11 mg/dL (7-18); CALCIUM 8.7 mg/dL (8.5-10.1); CHLORIDE 105 mmol/L (98-107); CREATININE 1.53 mg/dL (0.70-1.30); SODIUM 140 mmol/L (136-145); TROPONIN I 0.06 ng/mL (0-1.5); eGFR NON BLACK RACES 47 (>60)
[2018-03-09 20:29] LABS: B-TYPE NATRIURETIC PEPTIDE 136 pg/mL (0-79)
[2018-03-09 20:47] LABS: CKMB % 1.7 % (<4); CREATINE KINASE 289 Units/L (39-308)
[2018-03-09 21:16] LABS: ABG BASE EXCESS 6.1 mmol/L (-2.0-2.0)
[2018-03-09 21:17] LABS: ABG ALLEN TEST POS; ABG HCO3 30.6 mmol/L (22-26); FRACTIONATED INSPIRED OXYGEN 21
--- NOTE | 2018-03-09 22:44 | RAD ---
Indication: Shortness of breath Exam: Portable chest Comparison: 06/15/2017 Findings: The heart is normal. The pulmonary vessels are normal. The lungs are hyperinflated and ther e is a small right pleural effusion with hazy right basilar opacity. No pneumothorax is seen. Impression: Probable mild right basilar atelectasis and a small right pleural effusion which is more prominent. Reported By:
--- NOTE | 2018-03-09 23:09 | DR.SOBA ---
HPI Time Seen Time Seen by Provider: 03/09/18 22:47 Primary Care Physician Primary Care Physician: ROSE ALFARO IN [place] HPI Comment HPI Comment: GETTING WORSE. NEB TREATMENT GIVEN BY EMS ON THE WAY TO ED. NO FEVER. PRODUCTIVE COUGH, YELLOW SPUTUM. CHEST PAIN PLEURITIC WITH TIGHTNESS. PATIENT HAD 3 PLUS EDMA LOWER EXTREMITIES. Complaints Chief Complaint Doctors Comments: INCREASING SOB WITH AUDIBLE WHEEZING TIMES FEW HOURS. Chief Complaint:: EMS RESPONDED TO CALL FOR SHORT OF BREATH, UPON ARRIVAL VS WERE 161/81 O2 SAT WAS 92% HR 98. EMS GAVE PT BREATHING TREATMENT O2 SAT AT 100%. PT ALERT AND ORIENTED TIMES 3. WHEEZING NOT BILATERAL. Self Treatment fo Chief Complaint: CALLED 911 FOR ASSISTANCE. PT STATES SOB STARTED 03/08/18 AT NIGHT TIME. CONTINUE TO GET OWRSE. Reviewed Nurses Notes Reviewed: Yes Source History Provided: Patient Mode of Arrival Mode of Arrival: Stretcher Timing Onset of Chief Complaint: 03/09/18 Duration Duration: Days Context Onset:: At Rest and With Light Exertion PE Risk Factors:: None History of:: COPD and CHF Prehospital Care:: Injected B2; denies Intubation Modifying Factors Worsens:: Nothing Improves:: Nothing Associated Signs and Symptoms Associated Signs and Symptoms: Wheeze and Cough If Chest Pain Quality: Pleuritic (TIGHTNESS, ) Location: Right Lower Chest, Left Upper Chest and Left Lower Chest If Cough Cough: Nonproductive and Yellow PMH PMH Past Medical History: Yes Past Medical History: COPD, GERD and Hypertension Past Surgical History: Yes Surgical History: Appendectomy and Other Family History History of Family Medical Conditions: Yes Family Medical History: Cancer and [place] Social History Does any household member use tobacco: No Alcohol Use: None Do you use any recreational Drugs:: No Lives With: Alone Lives Where: Home infectious screening In the last 2 months have you had wt loss of >10#?: NO Have you had fever, night sweats or hemotysis?: No Have you traveled outside the country in the last 6 months?: No Isolation: Standard ROS Review of Systems Constitutional: Weakness and Fatigue Eyes: No Symptoms Reported ENTM: Nose Congestion Respiratoy: Productive Cough, Short of Breath and Wheezing Cardiovascular: Chest Pain and Edema Gastrointestinal/Abdominal: Nausea Genitourinary: No Symptoms Reported Neurological: Weakness Musculoskeletal: Muscle Pain Integumentary: Dryness Hematologic/Lymphatic: Easy Bleeding and Easy Bruising Endocrine: No Symptoms Reported Psychiatric: No Symptoms Reported Unable to Obtain Due To: Altered mental status PE Vital Signs Vitals: Temperature 97.9 F Pulse Rate [Right Brachial] 109 Pulse Rate 98 Respiratory Rate 30 Blood Pressure [Right Arm] 144/83 Blood Pressure 172/97 O2 Sat by Pulse Oximetry 96 General Limitations: No Limitations General Appearance: Alert and In Distress Head Head Exam: Normal Inspection and Atraumatic Eyes Eye exam: Normal Appearance, PERRL and EOMI; negative Scleral Icterus and Conjunctival Injection ENT ENT Exam: Normal Exam, Normal Oropharynx, Normal External Ear Exam and TM's Normal Bilaterally Neck Neck Exam: Normal Inspection and Trachea Midline Chest Chest Inspection: Symmetric Chest Wall Rise Respiratory Respiratory Exam: Respiratory Distress Respiratory Exam: Bilateral: Wheezing and Bilateral: Rhonchi, Upper: Wheezing and Upper: Rhonchi and Lower: Wheezing and Lower: Rhonchi Cardiovascular Cardiovascular Exam: Regular Rate and Normal Rhythm Abdominal Exam Abdominal Exam: Normal Inspection, Normal Bowel Sounds and Soft; negative Tenderness Extremities Extremities Exam: Edema Back Back Exam: Normal Inspection Neurologic Neurological Exam: Alert, Oriented X3 and CN II-XII Intact; negative Motor Sensory Deficit Psychiatric Psychiatric Exam: Normal Affect and Normal Mood Skin Skin Exam: Dry and Erythema MDM Differential Diagnosis Differential Diagnosis: CHF, COPD, Mycardial Infarction, Pneumonia, Pneumothorax, Pulmonary embolism and Respiratory Insufficiency COURSE Treatment Treatment: SEE 0RDERS. Consultation Consultation Comments: DISCUSS PATIENT WITH DR. BUTLER. HE WILL ADMIT PATIENT. Education/Counseling Education/Counseling: Patient and Education Educated On: Diagnosis ROR Labs Reviewed Laboratory Results Reviewed?: Yes Result Diagrams: 03/09/18 20:00 03/09/18 20:00 Laboratory: WBC 10.4 X10^3/uL (3.6-10.0) H 03/09/18 20:00 RBC 4.29 X10^6/uL (4.7-6.0) L 03/09/18 20:00 Hgb 12.3 g/dL (13.5-18.0) L 03/09/18 20:00 Hct 37.0 % (42.0-54.0) L 03/09/18 20:00 MCV 86.2 fL (80.0-100.0) 03/09/18 20:00 MCH 28.6 pg (27.0-34.0) 03/09/18 20:00 MCHC 33.2 g/dL (33.0-35.0) 03/09/18 20:00 RDW 14.7 % (11.6-16.5) 03/09/18 20:00 Plt Count 163 X10^3/uL (150.0-450.0) 03/09/18 20:00 MPV 11.3 fL (7.4-11.0) H 03/09/18 20:00 Neut % (Auto) 64.3 % (42.0-75.0) 03/09/18 20:00 Lymph % (Auto) 22.7 % (21.0-51.0) 03/09/18 20:00 [place] % (Auto) 9.2 % (0.0-13.0) 03/09/18 20:00 Eos % (Auto) 2.9 % (0.9-2.9) 03/09/18 20:00 Baso % (Auto) 0.9 % (0.2-1.0) 03/09/18 20:00 Neut # (Auto) 6.7 x10^3/uL (2.2-4.8) H 03/09/18 20:00 Lymph # (Auto) 2.3 X10^3/uL (1.3-2.9) 03/09/18 20:00 [place] # (Auto) 1.0 x10^3/uL (0.3-0.8) H 03/09/18 20:00 Eos # (Auto) 0.3 x10^3/uL (0.0-0.2) H 03/09/18 20:00 Baso # (Auto) 0.1 X10^3/uL (0.0-0.1) 03/09/18 20:00 Absolute Nucleated RBC 0.0 /100WBC 03/09/18 20:00 D-Dimer 1390 ng/mL (0-400) H* 03/10/18 00:24 Sample Site Right radial 03/09/18 21:00 ABG pH 7.460 (7.35-7.45) H 03/09/18 21:00 ABG pCO2 43.0 mmHg (35.0-45.0) 03/09/18 21:00 ABG pO2 82.0 mmHg (80.0-100.0) 03/09/18 21:00 ABG HCO3 30.6 mmol/L (22-26) H* 03/09/18 21:00 ABG O2 Saturation 97.0 % (90-100) 03/09/18 21:00 ABG Base Excess 6.1 mmol/L (-2.0-2.0) H 03/09/18 21:00 Yvon Test Pos 03/09/18 21:00 A-a Gradient 14.0 mmHg 03/09/18 21:00 FiO2 21 03/09/18 21:00 Blood Gas Comments Thony well jts 03/09/18 21:00 Sodium 140 mmol/L (136-145) 03/09/18 20:00 Corrected Sodium TNP 03/09/18 20:00 Potassium 3.8 mmol/L (3.5-5.1) 03/09/18 20:00 Chloride 105 mmol/L (98-107) 03/09/18 20:00 Carbon Dioxide 32.0 mmol/L (21-32) 03/09/18 20:00 BUN 11 mg/dL (7-18) 03/09/18 20:00 Creatinine 1.53 mg/dL (0.70-1.30) H 03/09/18 20:00 Est GFR (MDRD) Af Amer 57 (>60) L 03/09/18 20:00 Est GFR (MDRD) Non-Af 47 (>60) L 03/09/18 20:00 Glucose 96 mg/dL (65-99) 03/09/18 20:00 Calcium 8.7 mg/dL (8.5-10.1) 03/09/18 20:00 Creatine Kinase 241 Units/L (39-308) 03/10/18 00:24 CK-MB (CK-2) 4.3 ng/mL (0-4.0) H* 03/10/18 00:24 CK/CKMB % Calc 1.8 % (<4) 03/10/18 00:24 Troponin I 0.04 ng/mL (0-1.5) 03/10/18 00:24 B-Natriuretic Peptide 136 pg/mL (0-79) H 03/09/18 20:00 XRAY XRAY Interpreted by: Radiologist XRAY Findings: REPORT DISCUSS WITH PATIENT. EKG Rate: 87 Adkins: Normal Rhythm: NSR and PACs Hypertrophy: LAE ST: Old and Infarct Diagnosis Discharge Problem: Adult respiratory distress syndrome, COPD exacerbation Edema Qualifiers: Edema type: unspecified Qualified Code(s): R60.9 - Edema, unspecified
[2018-03-10 01:12] LABS: CKMB % 1.8 % (<4); TROPONIN I 0.04 ng/mL (0-1.5)
[2018-03-10 01:14] LABS: CREATINE KINASE MB 4.3 ng/mL (0-4.0)
[2018-03-10] MEDS ORDERED: SOLU-Medrol 125 MG VIAL IVP ONE (01:31)
[2018-03-10] MEDS ORDERED: SOLU-Medrol 125 MG VIAL ONE (01:31)
[2018-03-10] MEDS ORDERED: NS 100 ML IV 100 ML IV ONE (01:32)
--- NOTE | 2018-03-10 02:16 | CT ---
CTA chest Indication: Elevated D-dimer, shortness of breath Technique: Helical CT images of the chest were obtained with IV contrast. Reformatted images in the c oronal and sagittal planes and 3D MIP images were also generated for review. Comparison: CT chest 12/28/2014 Findings: Contrast bolus timing is adequate for detection of PTE. No pulmonary thromboembolus is iden tified. There is no pulmonary arterial dilatation or evidence of right heart strain. The heart is nor mal in size without pericardial effusion. And proximal great vessels are normal in contour and calibe r. The central airways are patent. There is no mediastinal or bulky hilar lymphadenopathy. There is mild peribronchial thickening and patchy peribronchial ground-glass opacities within the marina ateral lower lobes. There is a 2-3 mm nodule within the right upper lobe on image 16, series 4 which is unchanged in 2015 and is most certainly benign. The remainder of the lungs are clear. No significa nt pleural effusion or pneumothorax is identified. A small sliding hiatal hernia and cholelithiasis noted. Limited arterial phase images of the upper ab domen otherwise demonstrate no acute abnormality. No aggressive osseous lesions are identified. Impression: No PTE identified. Peribronchial thickening and patchy bilateral lower lobe peribronchial ground-glass opacities, sugges tive for bronchitis and developing bronchopneumonia. Reported By:
[2018-03-10] MEDS ORDERED: ROCEPHIN VIAL 1 GRAM IVP ONE (02:19)
[2018-03-10] MEDS ORDERED: ROCEPHIN VIAL 1 GRAM ONE (02:25)
[2018-03-10] MEDS ORDERED: ATIVAN TAB 1 MG ONE (02:40)
[2018-03-10] MEDS: ATIVAN TAB 1 MG PO SCH ×3 (02:44→20:25)
[2018-03-10 03:15] LABS: BASOPHILS # (AUTO) 0.1 X10^3/uL (0.0-0.1); BASOPHILS % (AUTO) 0.4 % (0.2-1.0); EOSINOPHILS # (AUTO) 0.2 x10^3/uL (0.0-0.2); EOSINOPHILS % (AUTO) 1.6 % (0.9-2.9); HEMATOCRIT 37.4 % (42.0-54.0); HEMOGLOBIN 12.4 g/dL (13.5-18.0); LYMPHOCYTES # (AUTO) 1.8 X10^3/uL (1.3-2.9); LYMPHOCYTES % (AUTO) 13.9 % (21.0-51.0); MEAN CORPUSCULAR HEMOGLOBIN 28.5 pg (27.0-34.0); MEAN CORPUSCULAR HGB CONC 33.2 g/dL (33.0-35.0); MEAN PLATELET VOLUME 11.2 fL (7.4-11.0); MONOCYTES # (AUTO) 0.8 x10^3/uL (0.3-0.8); MONOCYTES % (AUTO) 6.1 % (0.0-13.0); NEUTROPHILS # (AUTO) 10.1 x10^3/uL (2.2-4.8); PLATELET COUNT 157 X10^3/uL (150.0-450.0); RED BLOOD COUNT 4.34 X10^6/uL (4.7-6.0); RED CELL DISTRIBUTION WIDTH 14.5 % (11.6-16.5)
[2018-03-10 03:16] LABS: CALCIUM 8.7 mg/dL (8.5-10.1); CARBON DIOXIDE 29.1 mmol/L (21-32); CREATININE 1.58 mg/dL (0.70-1.30)
[2018-03-10 03:51] VITALS: BMI 28.8
[2018-03-10] MEDS: DUONEB 0.5 MG/3 MG NEB SCH ×5 (04:15→21:48)
[2018-03-10] MEDS ORDERED: NS 250 ML IV 250 ML IV ONE (06:31)
[2018-03-10] MEDS ORDERED: NS 250 ML IV 250 ML IV PRN (06:33)
[2018-03-10] MEDS: LEVAQUIN PREMIX IV 750 MG 750 MG/150 ML BAG IV SCH (06:36)
[2018-03-10] MEDS: PULMICORT NEB TX 0.5 MG NEB SCH ×2 (12:35→21:48)
[2018-03-10] MEDS: NexIUM PO SCH (19:29)
[2018-03-10] MEDS ORDERED: NS 100 ML IV + SPIKE MINIBAG* 0 ML IV ONE (20:09)
[2018-03-10] MEDS: SINGULAIR TAB 10 MG PO SCH (20:24)
[2018-03-10] MEDS: ROCEPHIN VIAL 1 GRAM IVP SCH (20:32)
[2018-03-11] MEDS: DUONEB 0.5 MG/3 MG NEB SCH ×6 (00:35→21:06)
[2018-03-11 05:11] LABS: BASOPHILS # (AUTO) 0.1 X10^3/uL (0.0-0.1); BASOPHILS % (AUTO) 0.7 % (0.2-1.0); EOSINOPHILS % (AUTO) 0.1 % (0.9-2.9); HEMATOCRIT 33.8 % (42.0-54.0); HEMOGLOBIN 11.3 g/dL (13.5-18.0); LYMPHOCYTES # (AUTO) 2.3 X10^3/uL (1.3-2.9); LYMPHOCYTES % (AUTO) 21.4 % (21.0-51.0); MEAN CORPUSCULAR HEMOGLOBIN 28.8 pg (27.0-34.0); MEAN CORPUSCULAR HGB CONC 33.4 g/dL (33.0-35.0); MEAN CORPUSCULAR VOLUME 86.4 fL (80.0-100.0); MEAN PLATELET VOLUME 11.7 fL (7.4-11.0); NEUTROPHILS # (AUTO) 7.3 x10^3/uL (2.2-4.8); NEUTROPHILS % (AUTO) 68.8 % (42.0-75.0); PLATELET COUNT 154 X10^3/uL (150.0-450.0); RED BLOOD COUNT 3.91 X10^6/uL (4.7-6.0); RED CELL DISTRIBUTION WIDTH 14.3 % (11.6-16.5); WHITE BLOOD COUNT 10.6 X10^3/uL (3.6-10.0)
[2018-03-11 05:38] LABS: ALBUMIN 2.9 g/dL (3.4-5.0); CALCIUM 8.8 mg/dL (8.5-10.1); CARBON DIOXIDE 29.6 mmol/L (21-32); COR CA(FOR HYPOALB) 9.7 mg/dL (8.5-10.1); CREATININE 1.49 mg/dL (0.70-1.30); TOTAL PROTEIN 6.8 g/dL (6.4-8.2)
--- NOTE | 2018-03-11 06:54 | RAD ---
HISTORY: Chest pain shortness of breath Study: Chest AP portable Comparison: 03/09/2018, CT chest 03/10/2018 Findings: The heart is within normal limits in size. The raven are normal. The lungs are hyperinflated but free of acute alveolar infiltrates. No pleural effusions are identified. The infiltrates described on the recent chest CT are not visible on plain films. The bony thorax is unremarkable. IMPRESSION: Hyperinflation Reported By:
[2018-03-11] MEDS: PULMICORT NEB TX 0.5 MG NEB SCH ×2 (08:45→21:06)
[2018-03-11] MEDS: NexIUM PO SCH (08:52)
[2018-03-11] MEDS: ATIVAN TAB 1 MG PO SCH ×2 (08:52→20:08)
[2018-03-11] MEDS: SINGULAIR TAB 10 MG PO SCH (20:08)
[2018-03-11] MEDS: ROCEPHIN VIAL 1 GRAM IVP SCH (20:08)
[2018-03-12] MEDS: DUONEB 0.5 MG/3 MG NEB SCH ×3 (01:10→09:20)
[2018-03-12 05:22] LABS: BASOPHILS # (AUTO) 0.1 X10^3/uL (0.0-0.1); BASOPHILS % (AUTO) 0.9 % (0.2-1.0); EOSINOPHILS # (AUTO) 0.3 x10^3/uL (0.0-0.2); EOSINOPHILS % (AUTO) 3.6 % (0.9-2.9); HEMATOCRIT 33.6 % (42.0-54.0); LYMPHOCYTES # (AUTO) 2.7 X10^3/uL (1.3-2.9); LYMPHOCYTES % (AUTO) 32.4 % (21.0-51.0); MEAN CORPUSCULAR HEMOGLOBIN 28.3 pg (27.0-34.0); MEAN CORPUSCULAR HGB CONC 32.7 g/dL (33.0-35.0); MEAN CORPUSCULAR VOLUME 86.5 fL (80.0-100.0); MEAN PLATELET VOLUME 11.6 fL (7.4-11.0); MONOCYTES # (AUTO) 0.8 x10^3/uL (0.3-0.8); MONOCYTES % (AUTO) 10.2 % (0.0-13.0); NEUTROPHILS # (AUTO) 4.4 x10^3/uL (2.2-4.8); NEUTROPHILS % (AUTO) 52.9 % (42.0-75.0); PLATELET COUNT 160 X10^3/uL (150.0-450.0); RED BLOOD COUNT 3.88 X10^6/uL (4.7-6.0); RED CELL DISTRIBUTION WIDTH 14.2 % (11.6-16.5); WHITE BLOOD COUNT 8.2 X10^3/uL (3.6-10.0)
[2018-03-12] MEDS: LEVAQUIN PREMIX IV 750 MG 750 MG/150 ML BAG IV SCH (05:35)
[2018-03-12 05:54] LABS: ALANINE AMINOTRANSFERASE 17 Units/L (12-78); ALBUMIN 2.8 g/dL (3.4-5.0); ALKALINE PHOSPHATASE 72 Units/L (46-116); ASPARTATE AMINO TRANSFERASE 16 Units/L (15-37); BLOOD UREA NITROGEN 19 mg/dL (7-18); CALCIUM 8.7 mg/dL (8.5-10.1); CARBON DIOXIDE 29.3 mmol/L (21-32); CHLORIDE 104 mmol/L (98-107); COR CA(FOR HYPOALB) 9.7 mg/dL (8.5-10.1); CREATININE 1.28 mg/dL (0.70-1.30); SODIUM 141 mmol/L (136-145); TOTAL PROTEIN 6.6 g/dL (6.4-8.2); eGFR NON BLACK RACES 58 (>60)
[2018-03-12 08:30] VITALS: BP 134/63
[2018-03-12] MEDS: ATIVAN TAB 1 MG PO SCH (08:39)
[2018-03-12] MEDS: NexIUM PO SCH (08:39)
[2018-03-12] MEDS: PULMICORT NEB TX 0.5 MG NEB SCH (09:21)
== END 2018-03-12 11:35 | disposition home or self-care (01) | DRG 192 ==
LOC: MED/SURG 18:57 → ER 18:57 → OBSVTOIN 03-10 02:26 → MED/SURG 03-10 03:01
PROVIDERS: ADMIT Obstetrics & Gynecology Obstetrics; ATTEND Obstetrics & Gynecology Obstetrics
DX: I10 Essential (primary) hypertension; R60.0 Localized edema; R06.02 Shortness of breath; R26.89 Other abnormalities of gait and mobility; J44.1 Chronic obstructive pulmonary disease with (acute) exacerbation; R94.31 Abnormal electrocardiogram [ECG] [EKG]; K21.9 Gastro-esophageal reflux disease without esophagitis; R07.89 Other chest pain; R06.03 Acute respiratory distress
CPT/HCPCS: 36415; 36600; 71010; 71045; 71275; 80048; 80053; 82550; 82553; 82803; 83880; 84484; 85025; 85378; 87040; 87070; 87205; 93005; 93010; 94640; 94669; 94760; 96365; 96367; 96374; 96375; 97110; 97163; 97167; 97530; 97535; 99284; A4216; A4222; J0696; J1940; J1956; J2930; J7050; J7620; J7626

== ENCOUNTER 2019-02-08 12:12 | Observation (INO) ==
--- NOTE | 2019-02-08 12:25 | DR.GENAD ---
HPI Time Seen Time Seen by Provider: 02/08/19 12:25 Complaint/Symptoms Chief Complaint Doctors Comments: 78 yo male with who presents for SOB and wheezing. This started Saturday night and has worsened since.He had been coughing more than usual. He states that he has had exertional dyspnea getting and out of bed/motorized wheel chair. He has also had increased work of breathing. PMH PMH Past Medical History: COPD, GERD and Hypertension Past Surgical History: Yes Surgical History: Appendectomy and Other Family History Family Medical History: Cancer and [place] Social History Do you use any recreational Drugs:: No ROS Review of Systems Constitutional: No Symptoms Reported Eyes: No Symptoms Reported ENTM: No Symptoms Reported Respiratoy: Productive Cough, Short of Breath and Wheezing Cardiovascular: No Symptoms Reported Gastrointestinal/Abdominal: No Symptoms Reported Genitourinary: No Symptoms Reported Neurological: No Symptoms Reported Musculoskeletal: No Symptoms Reported Integumentary: No Symptoms Reported Hematologic/Lymphatic: No Symptoms Reported Psychiatric: No Symptoms Reported All Other Systems: Reviewed and Negative PE Vital Signs Vitals: Temperature 98.5 F Pulse Rate [Right Brachial] 76 Pulse Rate 80 Respiratory Rate 20 Blood Pressure [Left Arm] 135/73 Blood Pressure [Right Arm] 132/68 Blood Pressure 135/66 O2 Sat by Pulse Oximetry 98 General Limitations: Other (brought in on strecther ) General Appearance: Alert and In Distress (respiratory ) Head Head Exam: Normal Inspection, Atraumatic and Normocephalic Eyes Eye exam: Normal Appearance, PERRL (catarac) and EOMI ENT External Ear Exam: Normal External Inspection Nose Exam: Normal Nose Exam Neck Neck Exam: Normal Inspection and Full ROM Chest Chest Inspection: negative Tenderness Respiratory Respiratory Exam: Respiratory Distress Respiratory Exam: Bilateral: Wheezing Cardiovascular Cardiovascular Exam: Regular Rate and Normal Rhythm Abdominal Exam Abdominal Exam: Normal Inspection, Normal Bowel Sounds and Soft Extremities Extremities Exam: Normal Inspection Neurologic Neurological Exam: Alert, Oriented X3, CN II-XII Intact and Normal Gait Skin Skin Exam: Warm, Dry and Intact MDM Additional Information Additional Information Obtained From: Old Records Differential Diagnosis Differential Diagnosis: COPD exacerbation COURSE Treatment Treatment: pt has exertional dyspnea, increase productive cough, and SOB. Tx with solumedrol and levaquin in ED. Reevaluation 1st: Unchanged (13:35 about same as when he arrived ) 2nd: Improved (14:00 pt states his breathing has improved. ) Consultation Called: 15:00 Call Returned: 15:00 Consultation Comments: Dr. Snow advised inpt admission Education/Counseling Education/Counseling: Patient, Family, Education and Counseling Educated On: Treatment, Diagnosis, Prognosis and Needs for Follow Up ROR Labs Reviewed Laboratory Results Reviewed?: Yes Result Diagrams: 02/08/19 12:35 02/08/19 12:35 Laboratory: 02/08/19 12:50 Sputum - Expectorated Sputum - Final WBC 7.6 X10^3/uL (3.6-10.0) 02/08/19 12:35 RBC 4.18 X10^6/uL (4.7-6.0) L 02/08/19 12:35 Hgb 12.2 g/dL (13.5-18.0) L 02/08/19 12:35 Hct 36.1 % (42.0-54.0) L 02/08/19 12:35 MCV 86.4 fL (80.0-100.0) 02/08/19 12:35 MCH 29.1 pg (27.0-34.0) 02/08/19 12:35 MCHC 33.7 g/dL (33.0-35.0) 02/08/19 12:35 RDW 13.6 % (11.6-16.5) 02/08/19 12:35 Plt Count 152 X10^3/uL (150.0-450.0) 02/08/19 12:35 MPV 10.4 fL (7.4-11.0) 02/08/19 12:35 Neut % (Auto) 54.0 % (42.0-75.0) 02/08/19 12:35 Lymph % (Auto) 32.0 % (21.0-51.0) 02/08/19 12:35 [place] % (Auto) 8.2 % (0.0-13.0) 02/08/19 12:35 Eos % (Auto) 4.8 % (0.9-2.9) H 02/08/19 12:35 Baso % (Auto) 1.0 % (0.2-1.0) 02/08/19 12:35 Neut # (Auto) 4.1 x10^3/uL (2.2-4.8) 02/08/19 12:35 Lymph # (Auto) 2.4 X10^3/uL (1.3-2.9) 02/08/19 12:35 [place] # (Auto) 0.6 x10^3/uL (0.3-0.8) 02/08/19 12:35 Eos # (Auto) 0.4 x10^3/uL (0.0-0.2) H 02/08/19 12:35 Baso # (Auto) 0.1 X10^3/uL (0.0-0.1) 02/08/19 12:35 Absolute Nucleated RBC 0.0 /100WBC 02/08/19 12:35 Sodium 138 mmol/L (136-145) 02/08/19 12:35 Corrected Sodium 138 mmol/L (136-145) 02/08/19 12:35 Potassium 3.6 mmol/L (3.5-5.1) 02/08/19 12:35 Chloride 102 mmol/L (98-107) 02/08/19 12:35 Carbon Dioxide 28.9 mmol/L (21-32) 02/08/19 12:35 BUN 14 mg/dL (7-18) 02/08/19 12:35 Creatinine 1.37 mg/dL (0.70-1.30) H 02/08/19 12:35 Est GFR (MDRD) Af Amer > 60 (>60) 02/08/19 12:35 Est GFR (MDRD) Non-Af 54 (>60) L 02/08/19 12:35 Glucose 118 mg/dL (65-99) H 02/08/19 12:35 Calcium 9.4 mg/dL (8.5-10.1) 02/08/19 12:35 Corrected Calcium 10.0 mg/dL (8.5-10.1) 02/08/19 12:35 Total Bilirubin 0.60 mg/dL (0.2-1.0) 02/08/19 12:35 AST 14 Units/L (15-37) L 02/08/19 12:35 ALT 12 Units/L (12-78) 02/08/19 12:35 Alkaline Phosphatase 98 Units/L (46-116) 02/08/19 12:35 Total Protein 7.2 g/dL (6.4-8.2) 02/08/19 12:35 Albumin 3.2 g/dL (3.4-5.0) L 02/08/19 12:35 Globulin 4.0 g/dL (2.5-4.5) 02/08/19 12:35 Albumin/Globulin Ratio 0.8 Ratio (1.1-2.1) L 02/08/19 12:35 Influenza Type A (PCR) Negative (NEGATIVE) 02/08/19 12:35 Influenza Type B (PCR) Negative (NEGATIVE) 02/08/19 12:35 Opioid Opioid Risk Tool Total: 0 Total Score Risk Category: Low Risk Copyright: Elie HYLTON predicting aberrant behaviors Diagnosis Discharge Problem: Acute exacerbation of chronic obstructive pulmonary disease (COPD) Narrative Support Text: Patient was seen in ED. All labs/imaging/ and clinical findings were discussed with patient. Care plan was discussed and they stated understanding and agreement. Admitted to hospitalist service.
[2019-02-08] MEDS ORDERED: DECADRON JET NEB (RESP USE) NEB ONE ×2 (12:35→12:37)
[2019-02-08] MEDS ORDERED: XOPENEX 1.25 MG/3 ML NEBULE NEB ONE ×2 (12:35→12:38)
[2019-02-08 12:52] LABS: BASOPHILS # (AUTO) 0.1 X10^3/uL (0.0-0.1); EOSINOPHILS # (AUTO) 0.4 x10^3/uL (0.0-0.2); EOSINOPHILS % (AUTO) 4.8 % (0.9-2.9); HEMATOCRIT 36.1 % (42.0-54.0); HEMOGLOBIN 12.2 g/dL (13.5-18.0); LYMPHOCYTES # (AUTO) 2.4 X10^3/uL (1.3-2.9); MEAN CORPUSCULAR HEMOGLOBIN 29.1 pg (27.0-34.0); MEAN CORPUSCULAR HGB CONC 33.7 g/dL (33.0-35.0); MEAN CORPUSCULAR VOLUME 86.4 fL (80.0-100.0); MEAN PLATELET VOLUME 10.4 fL (7.4-11.0); MONOCYTES # (AUTO) 0.6 x10^3/uL (0.3-0.8); MONOCYTES % (AUTO) 8.2 % (0.0-13.0); NEUTROPHILS # (AUTO) 4.1 x10^3/uL (2.2-4.8); PLATELET COUNT 152 X10^3/uL (150.0-450.0); RED BLOOD COUNT 4.18 X10^6/uL (4.7-6.0); RED CELL DISTRIBUTION WIDTH 13.6 % (11.6-16.5); WHITE BLOOD COUNT 7.6 X10^3/uL (3.6-10.0)
[2019-02-08] MEDS ORDERED: SOLU-Medrol 125 MG VIAL IVP ONE (13:03)
[2019-02-08 13:04] LABS: ALANINE AMINOTRANSFERASE 12 Units/L (12-78); ALBUMIN 3.2 g/dL (3.4-5.0); ALKALINE PHOSPHATASE 98 Units/L (46-116); ASPARTATE AMINO TRANSFERASE 14 Units/L (15-37); BLOOD UREA NITROGEN 14 mg/dL (7-18); CALCIUM 9.4 mg/dL (8.5-10.1); CARBON DIOXIDE 28.9 mmol/L (21-32); CHLORIDE 102 mmol/L (98-107); COR NA(FOR HYPERGLY) 138 mmol/L (136-145); CREATININE 1.37 mg/dL (0.70-1.30); SODIUM 138 mmol/L (136-145); TOTAL PROTEIN 7.2 g/dL (6.4-8.2); eGFR NON BLACK RACES 54 (>60)
[2019-02-08] MEDS ORDERED: SOLU-Medrol 125 MG VIAL ONE (13:08)
[2019-02-08] MEDS ORDERED: LEVAQUIN PREMIX IV 750 MG 750 MG/150 ML BAG IV SCH (13:10)
[2019-02-08 15:45] LABS: ABG BASE EXCESS 6.1 mmol/L (-2.0-2.0)
[2019-02-08 15:46] LABS: ABG HCO3 31.2 mmol/L (22-26)
--- NOTE | 2019-02-08 16:28 | RAD ---
HISTORY: Wheezing shortness of breath. Study: Portable chest. Comparison: Chest x-ray dated March 16, 2018. Findings: The trachea is midline. The cardiac silhouette is unremarkable. Chronic emphysematous changes.. No obvious focal consolidation, pleural effusion, or pneumothorax. The bony thorax is unremarkable. IMPRESSION: No acute cardiopulmonary disease. Reported By:
[2019-02-08] MEDS ORDERED: K-DUR TAB 20 MEQ PO PRN (16:53)
[2019-02-08] MEDS ORDERED: POTASSIUM CHLORIDE LIQ 20 MEQ UDC PO PRN (16:53)
[2019-02-08] MEDS ORDERED: POTASSIUM CHL 60 MEQ/NS 0.45% 500 ML IV PRN (16:53)
[2019-02-08] MEDS ORDERED: KLOR-CON PO PRN (16:53)
[2019-02-08] MEDS ORDERED: MICRO K EXTEN CAP 10 MEQ PO PRN (16:53)
[2019-02-08] MEDS ORDERED: K-RIDER 10 MEQ/NS 100 ML 10 MEQ/100 ML BAG IV PRN (16:53)
[2019-02-08] MEDS ORDERED: POTASSIUM CHL 40 MEQ/NS 0.45% 500 ML IV PRN (16:53)
[2019-02-08] MEDS: DUONEB 0.5 MG/3 MG NEB SCH ×2 (16:56→20:30)
[2019-02-08 19:02] VITALS: BMI 31.6
[2019-02-08] MEDS: PULMICORT NEB TX 0.5 MG NEB SCH (20:30)
[2019-02-08] MEDS: BROVANA IN SCH (20:40)
[2019-02-08] MEDS ORDERED: NS 250 ML IV 250 ML IV ONE (20:40)
[2019-02-08] MEDS: MAALOX or MYLANTA PO PRN (20:52)
[2019-02-08] MEDS: MAGNESIUM SULFATE 1 GRAM/100 mL PREMIX 1 GM/100 ML BAG IV PRN ×2 (20:53→22:10)
[2019-02-09] MEDS: MAALOX or MYLANTA PO PRN ×3 (00:38→23:23)
[2019-02-09] MEDS: DUONEB 0.5 MG/3 MG NEB SCH ×6 (00:42→20:45)
[2019-02-09 05:38] LABS: BASOPHILS % (AUTO) 0.3 % (0.2-1.0); HEMATOCRIT 36.9 % (42.0-54.0); HEMOGLOBIN 12.1 g/dL (13.5-18.0); LYMPHOCYTES # (AUTO) 1.2 X10^3/uL (1.3-2.9); LYMPHOCYTES % (AUTO) 15.1 % (21.0-51.0); MEAN CORPUSCULAR HEMOGLOBIN 28.8 pg (27.0-34.0); MEAN CORPUSCULAR HGB CONC 32.9 g/dL (33.0-35.0); MEAN CORPUSCULAR VOLUME 87.6 fL (80.0-100.0); MEAN PLATELET VOLUME 11.6 fL (7.4-11.0); MONOCYTES # (AUTO) 0.5 x10^3/uL (0.3-0.8); MONOCYTES % (AUTO) 5.8 % (0.0-13.0); NEUTROPHILS # (AUTO) 6.5 x10^3/uL (2.2-4.8); NEUTROPHILS % (AUTO) 78.8 % (42.0-75.0); PLATELET COUNT 159 X10^3/uL (150.0-450.0); RED BLOOD COUNT 4.22 X10^6/uL (4.7-6.0); RED CELL DISTRIBUTION WIDTH 13.6 % (11.6-16.5); WHITE BLOOD COUNT 8.2 X10^3/uL (3.6-10.0)
[2019-02-09 06:04] LABS: ALANINE AMINOTRANSFERASE 15 Units/L (12-78); ALBUMIN 3.1 g/dL (3.4-5.0); ALKALINE PHOSPHATASE 95 Units/L (46-116); ASPARTATE AMINO TRANSFERASE 20 Units/L (15-37); BLOOD UREA NITROGEN 19 mg/dL (7-18); CALCIUM 9.5 mg/dL (8.5-10.1); CARBON DIOXIDE 27.9 mmol/L (21-32); CHLORIDE 100 mmol/L (98-107); COR CA(FOR HYPOALB) 10.2 mg/dL (8.5-10.1); COR NA(FOR HYPERGLY) 137 mmol/L (136-145); CREATININE 1.43 mg/dL (0.70-1.30); SODIUM 136 mmol/L (136-145); TOTAL PROTEIN 7.4 g/dL (6.4-8.2); eGFR NON BLACK RACES 51 (>60)
--- NOTE | 2019-02-09 07:24 | RAD ---
HISTORY: COPD exacerbation Study: Chest AP portable Comparison: 02/08/2019 Findings: The heart is within normal limits in size. The raven are normal. The lungs are well inflated and clear. No pleural effusions are identified. The bony thorax is unremarkable. IMPRESSION: No significant abnormality identified Reported By:
[2019-02-09] MEDS: PULMICORT NEB TX 0.5 MG NEB SCH ×2 (08:44→20:45)
[2019-02-09] MEDS: BROVANA IN SCH ×2 (09:00→20:55)
[2019-02-09] MEDS ORDERED: LEXAPRO ONE (11:41)
[2019-02-09] MEDS: NEURONTIN CAP 400 MG PO SCH ×3 (11:47→21:58)
[2019-02-09] MEDS: LEXAPRO PO SCH (11:48)
[2019-02-09] MEDS: NexIUM PO SCH (11:48)
[2019-02-09] MEDS ORDERED: PHARMACY CONSULT - DOSE _____ XX SCH (12:00)
--- NOTE | 2019-02-09 13:36 | DR.H&P ---
H&P - History & Physical for Day of: H&P Date: 02/08/19 - Chief Complaint Chief Complaint: SOB, INCREASED WHEEZING - History of Present Illness History of Present Illness: 78 yo bm ER admission who presents for SOB and wheezing. This started Saturday night and has worsened since.He had been coughing more than usual. He states that he has had exertional dyspnea getting and out of bed/motorized wheel chair. He has also had increased work of breathing. Pt states he has COPD and HTN. Pt reports he uses a recue inhaler. Pt admitted for treatment of acute illness. - Past Medical History Past Medical History: Hypertension, COPD, GERD - Past Surgical History Surgical History: Appendectomy - Family History Family Medical History: Diabetes Mellitus, Coronary Artery Disease - Social History Does patient currently use any type of tobacco product: Yes Have you used tobacco products in the last 12 months: Yes Type of Tobacco Use: Cigarettes How many years tobacco product used: 30 Does any household member use tobacco: No Alcohol Use: None Drug Use: None - Medications Home Medications: No Known Drug Allergies Allergy (Verified 07/08/18 03:13) CONTINUE taking the following medications acetaminophen-codeine 1 tab PO Q6H PRN 02/09/19 [History] ktliunawrw-nevqymyukhokn-vcyf 1 tab PO DAILY PRN 02/09/19 [History] colchicine 0.6 mg PO DAILY 02/09/19 [History] fluticasone furoate-vilanterol [Breo Ellipta] 1 puff INHALATION DAILY 02/09/19 [History] gabapentin 600 mg PO TID 02/09/19 [History] ranitidine HCl 150 mg PO DAILY 02/09/19 [History] sildenafil [Viagra] 100 mg PO DAILY PRN 02/09/19 [History] tizanidine 4 mg PO BID PRN 02/09/19 [History] - Review of Systems Constitutional: Weakness ENT: No Symptoms Reported Respiratory: Shortness of Breath, Wheezing Cardiovascular: No Symptoms Reported Gastrointestinal: No Symptoms Reported Genitourinary: No Symptoms Reported Musculoskeletal: No Symptoms Reported Skin: No Symptoms Reported Neurological: No Symptoms Reported - Physical Exam Vital Signs: Temperature 98.2 F Pulse Rate [Right Brachial] 93 Pulse Rate 95 Respiratory Rate 20 Blood Pressure [Left Arm] 135/73 Blood Pressure [Right Arm] 152/63 Blood Pressure 135/66 O2 Sat by Pulse Oximetry 98 Oriented: Normal Eyes: Normal Ear: Normal Nose: Normal Throat: Normal Respiratory: Rhonchi Throughout, Wheezes Throughout, RLL Diminished, LLL Diminished Cardiovascular: Normal. negative: Edema : Normal Auscultation: Bowel Sounds: Normal Palpation: Normal Tenderness: Normal Skin: Normal Musculoskeletal: Normal Psychiatric: Normal Mood Description: Calm Speech Pattern: Clear, Appropriate - Assessment/Plan (1) COPD (chronic obstructive pulmonary disease) with acute bronchitis Status: Acute Plan: admit, resp consult. cxr on admission. iv abtx, supplemental o2. sputum culture, verify home medication (2) Arthritis Status: Acute - Allergies Allergies/Adverse Reactions: Allergies Allergy/AdvReac Type Severity Reaction Status Date / Time No Known Drug Allergies Allergy Verified 07/08/18 03:13
[2019-02-09] MEDS: LOVENOX INJ 40 MG SYR SC SCH (13:42)
--- NOTE | 2019-02-09 13:43 | PCM.PROG ---
Progress Note - Progress Note for Day of Date of Exam: 02/09/19 - Subjective Subjective: 78 BM ER ADMISSION ON 02/08 WITH COPD EXACERBATION. PT IS CURRENTLY ON IV ATBX, ADDED IV SOLU MEDROL AND ROBITUSSIN QID, WILL CONTINUE HOME MEDICATION AND GENTLE IV HYDRATION WITH REPEAT AM LABS, ENCOURAGED SPUTUM PRODUCTION, PULMONARY TOILETING - Past Medical Family Social History Past Med/Fam/Surg Hx: No changes since H&P Allergies: Allergies No Known Drug Allergies Allergy (Verified 07/08/18 03:13) - Review of Systems ROS: No change since H&P - Vital Signs and I&O's Vital Signs: Temperature 98.2 F Pulse Rate [Right Brachial] 93 Pulse Rate 95 Respiratory Rate 20 Blood Pressure [Left Arm] 135/73 Blood Pressure [Right Arm] 152/63 Blood Pressure 135/66 O2 Sat by Pulse Oximetry 98 Intake and Output: Intake & Output 02/07/19 02/08/19 02/09/19 02/10/19 11:59 11:59 11:59 11:59 Intake Total 780 / 780 Output Total 1150 / 1150 Balance -370 / -370 - Physical Exam Oriented: Normal Eyes: Normal Ear: Normal Nose: Normal Throat: Normal Respiratory: Diminished, Wheezes Cardiovascular: Normal. negative: Edema : Normal Auscultation: Bowel Sounds: Normal Tenderness: Normal Skin: Normal Musculoskeletal: Normal Psychiatric: Normal Mood Description: Calm Speech Pattern: Clear, Appropriate - Laboratory and Diagnostics Result Diagrams: 02/09/19 04:30 02/09/19 04:30 Labs: 02/08/19 12:50 Sputum - Expectorated Sputum Sputum Culture - Preliminary 02/08/19 12:50 Sputum - Expectorated Sputum - Final Laboratory WBC 8.2 X10^3/uL (3.6-10.0) 02/09/19 04:30 RBC 4.22 X10^6/uL (4.7-6.0) L 02/09/19 04:30 Hgb 12.1 g/dL (13.5-18.0) L 02/09/19 04:30 Hct 36.9 % (42.0-54.0) L 02/09/19 04:30 MCV 87.6 fL (80.0-100.0) 02/09/19 04:30 MCH 28.8 pg (27.0-34.0) 02/09/19 04:30 MCHC 32.9 g/dL (33.0-35.0) L 02/09/19 04:30 RDW 13.6 % (11.6-16.5) 02/09/19 04:30 Plt Count 159 X10^3/uL (150.0-450.0) 02/09/19 04:30 MPV 11.6 fL (7.4-11.0) H 02/09/19 04:30 Neut % (Auto) 78.8 % (42.0-75.0) H 02/09/19 04:30 Lymph % (Auto) 15.1 % (21.0-51.0) L 02/09/19 04:30 [place] % (Auto) 5.8 % (0.0-13.0) 02/09/19 04:30 Eos % (Auto) 0.0 % (0.9-2.9) L 02/09/19 04:30 Baso % (Auto) 0.3 % (0.2-1.0) 02/09/19 04:30 Neut # (Auto) 6.5 x10^3/uL (2.2-4.8) H 02/09/19 04:30 Lymph # (Auto) 1.2 X10^3/uL (1.3-2.9) L 02/09/19 04:30 [place] # (Auto) 0.5 x10^3/uL (0.3-0.8) 02/09/19 04:30 Eos # (Auto) 0.0 x10^3/uL (0.0-0.2) 02/09/19 04:30 Baso # (Auto) 0.0 X10^3/uL (0.0-0.1) 02/09/19 04:30 Absolute Nucleated RBC 0.0 /100WBC 02/09/19 04:30 Sample Site Right brachial 02/08/19 15:30 ABG pH 7.440 (7.35-7.45) 02/08/19 15:30 ABG pCO2 46.0 mmHg (35.0-45.0) H 02/08/19 15:30 ABG pO2 59.0 mmHg (80.0-100.0) L 02/08/19 15:30 ABG HCO3 31.2 mmol/L (22-26) H* 02/08/19 15:30 ABG O2 Saturation 91.0 % (90-100) 02/08/19 15:30 ABG Base Excess 6.1 mmol/L (-2.0-2.0) H 02/08/19 15:30 Yvon Test Na 02/08/19 15:30 A-a Gradient 33.0 mmHg 02/08/19 15:30 FiO2 21.0 02/08/19 15:30 Blood Gas Comments Thony well aw 02/08/19 15:30 Sodium 136 mmol/L (136-145) 02/09/19 04:30 Corrected Sodium 137 mmol/L (136-145) 02/09/19 04:30 Potassium 4.2 mmol/L (3.5-5.1) 02/09/19 04:30 Chloride 100 mmol/L (98-107) 02/09/19 04:30 Carbon Dioxide 27.9 mmol/L (21-32) 02/09/19 04:30 BUN 19 mg/dL (7-18) H 02/09/19 04:30 Creatinine 1.43 mg/dL (0.70-1.30) H 02/09/19 04:30 Est GFR (MDRD) Af Amer > 60 (>60) 02/09/19 04:30 Est GFR (MDRD) Non-Af 51 (>60) L 02/09/19 04:30 Glucose 140 mg/dL (65-99) H 02/09/19 04:30 Calcium 9.5 mg/dL (8.5-10.1) 02/09/19 04:30 Corrected Calcium 10.2 mg/dL (8.5-10.1) H 02/09/19 04:30 Magnesium 2.5 mg/dL (1.7-2.9) 02/09/19 04:30 Total Bilirubin 0.40 mg/dL (0.2-1.0) 02/09/19 04:30 AST 20 Units/L (15-37) 02/09/19 04:30 ALT 15 Units/L (12-78) 02/09/19 04:30 Alkaline Phosphatase 95 Units/L (46-116) 02/09/19 04:30 Total Protein 7.4 g/dL (6.4-8.2) 02/09/19 04:30 Albumin 3.1 g/dL (3.4-5.0) L 02/09/19 04:30 Globulin 4.3 g/dL (2.5-4.5) 02/09/19 04:30 Albumin/Globulin Ratio 0.7 Ratio (1.1-2.1) L 02/09/19 04:30 Influenza Type A (PCR) Negative (NEGATIVE) 02/08/19 12:35 Influenza Type B (PCR) Negative (NEGATIVE) 02/08/19 12:35 - Plan (1) COPD (chronic obstructive pulmonary disease) with acute bronchitis Status: Acute Plan: resp consult. cxr on admission and repeat q am. iv abtx, supplemental o2 . sputum culture, verify home medication. iv solu medrol, budesonide, duo nebs, robitussin (2) Arthritis Status: Acute
[2019-02-09] MEDS: SOLU-Medrol 125 MG VIAL IVP SCH ×2 (13:47→21:58)
[2019-02-09] MEDS: TYLENOL #3 TAB (W/CODEINE) PO PRN (14:06)
[2019-02-09] MEDS: KLONOPIN TAB 1 MG PO SCH (21:58)
[2019-02-09] MEDS: SINGULAIR TAB 10 MG PO SCH (21:58)
[2019-02-09 23:40] LABS: BILIRUBIN,URINE NEGATIVE (NEGATIVE); BLOOD/HEMOGLOBIN,URINE 1+ (NEGATIVE); GLUCOSE, URINE 3+ (NEGATIVE); KETONES,URINE 1+ (NEGATIVE); LEUKOCYTE ESTERASE ,URINE 1+ (NEGATIVE); NITRITES,URINE NEGATIVE (NEGATIVE); PROTEIN,URINE 2+ (NEGATIVE); UROBILINOGEN,URINE NORMAL (NORMAL)
[2019-02-09 23:43] LABS: APPEARANCE,URINE CLEAR (CLEAR); COLOR,URINE YELLOW (YELLOW)
[2019-02-09 23:51] LABS: BACTERIA,URINE NEGATIVE /HPF (NEGATIVE); RBC,URINE 0-2 /HPF (0-3); SQUAMOUS EPITHELIAL CELL,UR NEGATIVE /HPF (NEGATIVE)
[2019-02-10] MEDS: DUONEB 0.5 MG/3 MG NEB SCH ×6 (00:56→20:43)
[2019-02-10 04:54] LABS: BASOPHILS % (AUTO) 0.2 % (0.2-1.0); HEMOGLOBIN 11.9 g/dL (13.5-18.0); LYMPHOCYTES # (AUTO) 0.6 X10^3/uL (1.3-2.9); LYMPHOCYTES % (AUTO) 6.5 % (21.0-51.0); MEAN CORPUSCULAR HGB CONC 33.1 g/dL (33.0-35.0); MEAN CORPUSCULAR VOLUME 87.7 fL (80.0-100.0); MEAN PLATELET VOLUME 11.2 fL (7.4-11.0); MONOCYTES # (AUTO) 0.2 x10^3/uL (0.3-0.8); MONOCYTES % (AUTO) 1.7 % (0.0-13.0); NEUTROPHILS # (AUTO) 8.2 x10^3/uL (2.2-4.8); NEUTROPHILS % (AUTO) 91.6 % (42.0-75.0); PLATELET COUNT 155 X10^3/uL (150.0-450.0); RED BLOOD COUNT 4.11 X10^6/uL (4.7-6.0); RED CELL DISTRIBUTION WIDTH 13.6 % (11.6-16.5)
[2019-02-10 05:07] LABS: ALBUMIN 3.2 g/dL (3.4-5.0); CALCIUM 9.5 mg/dL (8.5-10.1); CARBON DIOXIDE 27.5 mmol/L (21-32); COR CA(FOR HYPOALB) 10.1 mg/dL (8.5-10.1); CREATININE 1.54 mg/dL (0.70-1.30); TOTAL PROTEIN 7.6 g/dL (6.4-8.2)
[2019-02-10 05:12] LABS: PLATELET MORPHOLOGY COMMENT NORMAL (NORMAL)
[2019-02-10] MEDS: NEURONTIN CAP 400 MG PO SCH ×3 (05:22→21:19)
[2019-02-10] MEDS: SOLU-Medrol 125 MG VIAL IVP SCH ×2 (05:22→14:19)
[2019-02-10] MEDS ORDERED: NS 250 ML IV 250 ML IV ONE (08:04)
[2019-02-10] MEDS ORDERED: LEXAPRO ONE (08:05)
[2019-02-10] MEDS: PULMICORT NEB TX 0.5 MG NEB SCH ×2 (08:41→20:43)
[2019-02-10] MEDS: KLONOPIN TAB 1 MG PO SCH ×2 (08:59→21:19)
[2019-02-10] MEDS: NexIUM PO SCH (08:59)
[2019-02-10] MEDS: LEXAPRO PO SCH (08:59)
[2019-02-10] MEDS: BROVANA IN SCH ×2 (09:00→20:43)
[2019-02-10] MEDS: LOVENOX INJ 40 MG SYR SC SCH (09:00)
[2019-02-10] MEDS: LEVAQUIN PREMIX IV 750 MG 750 MG/150 ML BAG IV SCH (09:00)
[2019-02-10] MEDS: TYLENOL #3 TAB (W/CODEINE) PO PRN (14:18)
[2019-02-10] MEDS: HumuLIN R SUBCUT PRN ×2 (17:11→21:21)
[2019-02-10] MEDS: SNACK - Diabetic Appropriate PO SCH (20:00)
[2019-02-10] MEDS: SINGULAIR TAB 10 MG PO SCH (21:19)
[2019-02-10] MEDS: MAALOX or MYLANTA PO PRN (23:25)
[2019-02-11] MEDS ORDERED: ZOFRAN INJ 4 MG VIAL IVP PRN (00:05)
[2019-02-11] MEDS ORDERED: ZOFRAN INJ 4 MG VIAL ONE (00:26)
[2019-02-11] MEDS: TYLENOL #3 TAB (W/CODEINE) PO PRN ×2 (00:32→13:47)
[2019-02-11] MEDS: DUONEB 0.5 MG/3 MG NEB SCH ×6 (01:15→20:47)
[2019-02-11 05:02] LABS: BASOPHILS % (AUTO) 0.2 % (0.2-1.0); HEMATOCRIT 33.3 % (42.0-54.0); HEMOGLOBIN 10.9 g/dL (13.5-18.0); LYMPHOCYTES # (AUTO) 1.3 X10^3/uL (1.3-2.9); LYMPHOCYTES % (AUTO) 9.9 % (21.0-51.0); MEAN CORPUSCULAR HEMOGLOBIN 28.7 pg (27.0-34.0); MEAN CORPUSCULAR HGB CONC 32.6 g/dL (33.0-35.0); MEAN CORPUSCULAR VOLUME 87.9 fL (80.0-100.0); MEAN PLATELET VOLUME 10.6 fL (7.4-11.0); NEUTROPHILS # (AUTO) 10.8 x10^3/uL (2.2-4.8); NEUTROPHILS % (AUTO) 81.9 % (42.0-75.0); PLATELET COUNT 156 X10^3/uL (150.0-450.0); RED BLOOD COUNT 3.78 X10^6/uL (4.7-6.0); RED CELL DISTRIBUTION WIDTH 13.4 % (11.6-16.5); WHITE BLOOD COUNT 13.2 X10^3/uL (3.6-10.0)
[2019-02-11 05:23] LABS: CARBON DIOXIDE 28.1 mmol/L (21-32); COR CA(FOR HYPOALB) 9.8 mg/dL (8.5-10.1); CREATININE 1.46 mg/dL (0.70-1.30); TOTAL PROTEIN 6.8 g/dL (6.4-8.2)
[2019-02-11] MEDS: NEURONTIN CAP 400 MG PO SCH ×3 (05:28→21:26)
[2019-02-11] MEDS ORDERED: LEXAPRO ONE (08:16)
[2019-02-11] MEDS: PULMICORT NEB TX 0.5 MG NEB SCH ×2 (08:22→20:47)
[2019-02-11] MEDS: BROVANA IN SCH ×2 (08:35→20:42)
[2019-02-11] MEDS: LEXAPRO PO SCH (09:19)
[2019-02-11] MEDS: KLONOPIN TAB 1 MG PO SCH ×2 (09:19→21:26)
[2019-02-11] MEDS: LOVENOX INJ 40 MG SYR SC SCH (09:20)
[2019-02-11] MEDS: NexIUM PO SCH (09:20)
[2019-02-11 09:22] LABS: ABG ALLEN TEST POS; ABG HCO3 32.5 mmol/L (22-26)
--- NOTE | 2019-02-11 10:23 | RAD ---
HISTORY: COPD exacerbation, shortness of breath. Study: Single-view chest, done portably Comparison: 02/09/2019. Findings: Trachea is midline. Heart size is normal. Increased interstitial markings are present bilaterally, stable from prior studies. Findings may represent COPD. No consolidation, CHF, pleural fluid or pneumothorax is seen. Osseous structures are intact. IMPRESSION: COPD without acute cardiopulmonary disease. Reported By:
[2019-02-11] MEDS: MAALOX or MYLANTA PO PRN ×2 (13:47→17:13)
--- NOTE | 2019-02-11 16:35 | PCM.PROG ---
Progress Note - Progress Note for Day of Date of Exam: 02/11/19 - Subjective Subjective: he patient is a 78-year-old black male who was admitted on February 08, 2019 with a chronic obstructive pulmonary disease exacerbation. He is currently on IV antibiotic therapy and respiratory therapy. Yesterday, we added some IV SoluMedrol due to his diffuse wheezing. This morning, the patient states that he does feel some better. He continues with diffuse expiratory wheezes. The patient has no history of diabetes but did have an elevated blood sugar on the comprehensive metabolic panel this morning. We suspect that it is from the patients corticosteroid therapy, however, we will give him some sliding scale insulin coverage and we will stop his IV steroids. The patient is also receiving Budesonide, DuoNebs, and supplemental oxygen. The patient had sputum collected showing normal kenny. The patient does have a very productive cough present this morning. We encouraged pulmonary toileting. 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 We discussed need for hospital bed at home to improve chronic conditions. - Past Medical Family Social History Past Med/Fam/Surg Hx: No changes since H&P Allergies: Allergies No Known Drug Allergies Allergy (Verified 07/08/18 03:13) - Review of Systems ROS: No change since H&P - Vital Signs and I&O's Vital Signs: Temperature 97.9 F Pulse Rate [Right Brachial] 78 Pulse Rate 78 Respiratory Rate 20 Blood Pressure [Left Arm] 126/60 Blood Pressure [Right Arm] 135/75 Blood Pressure 135/66 O2 Sat by Pulse Oximetry 98 Intake and Output: Intake & Output 02/09/19 02/10/19 02/11/19 02/12/19 11:59 11:59 11:59 11:59 Intake Total 780 / 780 2150 / 2150 2390 / 2390 Output Total 1150 / 1150 1700 / 1700 2600 / 2600 Balance -370 / -370 450 / 450 -210 / -210 - Physical Exam Oriented: Normal Eyes: Normal Ear: Normal Nose: Normal Throat: Normal Respiratory: Diminished, Wheezes Cardiovascular: Normal. negative: Edema : Normal Auscultation: Bowel Sounds: Normal Tenderness: Normal Skin: Normal Musculoskeletal: Normal Psychiatric: Normal Mood Description: Calm Speech Pattern: Clear, Appropriate - Laboratory and Diagnostics Result Diagrams: 02/11/19 04:45 02/11/19 04:45 Labs: 02/08/19 12:35 Blood Blood Culture - Preliminary 02/08/19 12:50 Sputum - Expectorated Sputum Sputum Culture - Final 02/08/19 12:50 Sputum - Expectorated Sputum - Final Laboratory WBC 13.2 X10^3/uL (3.6-10.0) H 02/11/19 04:45 RBC 3.78 X10^6/uL (4.7-6.0) L 02/11/19 04:45 Hgb 10.9 g/dL (13.5-18.0) L 02/11/19 04:45 Hct 33.3 % (42.0-54.0) L 02/11/19 04:45 MCV 87.9 fL (80.0-100.0) 02/11/19 04:45 MCH 28.7 pg (27.0-34.0) 02/11/19 04:45 MCHC 32.6 g/dL (33.0-35.0) L 02/11/19 04:45 RDW 13.4 % (11.6-16.5) 02/11/19 04:45 Plt Count 156 X10^3/uL (150.0-450.0) 02/11/19 04:45 Plt Count Comment Adequate (ADEQUATE) 02/10/19 04:20 MPV 10.6 fL (7.4-11.0) 02/11/19 04:45 Neut % (Auto) 81.9 % (42.0-75.0) H 02/11/19 04:45 Lymph % (Auto) 9.9 % (21.0-51.0) L 02/11/19 04:45 [place] % (Auto) 8.0 % (0.0-13.0) 02/11/19 04:45 Eos % (Auto) 0.0 % (0.9-2.9) L 02/11/19 04:45 Baso % (Auto) 0.2 % (0.2-1.0) 02/11/19 04:45 Neut # (Auto) 10.8 x10^3/uL (2.2-4.8) H 02/11/19 04:45 Lymph # (Auto) 1.3 X10^3/uL (1.3-2.9) 02/11/19 04:45 [place] # (Auto) 1.0 x10^3/uL (0.3-0.8) H 02/11/19 04:45 Eos # (Auto) 0.0 x10^3/uL (0.0-0.2) 02/11/19 04:45 Baso # (Auto) 0.0 X10^3/uL (0.0-0.1) 02/11/19 04:45 Absolute Nucleated RBC 0.0 /100WBC 02/11/19 04:45 Total Counted 100 02/10/19 04:20 Neutrophils % (Manual) 90 % (39-76) H 02/10/19 04:20 Lymphocytes % (Manual) 9 % (13-43) L 02/10/19 04:20 Monocytes % (Manual) 1 % (4-9) L 02/10/19 04:20 Plt Morphology Comment Normal (NORMAL) 02/10/19 04:20 RBC Morphology Normal (NORMAL) 02/10/19 04:20 Sample Site Rrad 02/11/19 09:14 ABG pH 7.430 (7.35-7.45) 02/11/19 09:14 ABG pCO2 49.0 mmHg (35.0-45.0) H 02/11/19 09:14 ABG pO2 90.0 mmHg (80.0-100.0) 02/11/19 09:14 ABG HCO3 32.5 mmol/L (22-26) H* 02/11/19 09:14 ABG O2 Saturation 97.0 % (90-100) 02/11/19 09:14 ABG Base Excess 7.0 mmol/L (-2.0-2.0) H 02/11/19 09:14 Yvon Test Pos 02/11/19 09:14 A-a Gradient 48.0 mmHg 02/11/19 09:14 FiO2 28.0 02/11/19 09:14 Blood Gas Comments Pt yon well elj 02/11/19 09:14 Sodium 140 mmol/L (136-145) 02/11/19 04:45 Corrected Sodium 142 mmol/L (136-145) 02/11/19 04:45 Potassium 4.0 mmol/L (3.5-5.1) 02/11/19 04:45 Chloride 104 mmol/L (98-107) 02/11/19 04:45 Carbon Dioxide 28.1 mmol/L (21-32) 02/11/19 04:45 BUN 19 mg/dL (7-18) H 02/11/19 04:45 Creatinine 1.46 mg/dL (0.70-1.30) H 02/11/19 04:45 Est GFR (MDRD) Af Amer 60 (>60) 02/11/19 04:45 Est GFR (MDRD) Non-Af 50 (>60) L 02/11/19 04:45 Glucose 165 mg/dL (65-99) H 02/11/19 04:45 POC Glucose (mg/dL) 342 mg/dL (65-99) H 02/10/19 16:19 Hemoglobin A1c 5.5 % 02/10/19 18:09 Calcium 9.0 mg/dL (8.5-10.1) 02/11/19 04:45 Corrected Calcium 9.8 mg/dL (8.5-10.1) 02/11/19 04:45 Magnesium 2.5 mg/dL (1.7-2.9) 02/09/19 04:30 Total Bilirubin 0.30 mg/dL (0.2-1.0) 02/11/19 04:45 AST 8 Units/L (15-37) L 02/11/19 04:45 ALT 13 Units/L (12-78) 02/11/19 04:45 Alkaline Phosphatase 83 Units/L (46-116) 02/11/19 04:45 Total Protein 6.8 g/dL (6.4-8.2) 02/11/19 04:45 Albumin 3.0 g/dL (3.4-5.0) L 02/11/19 04:45 Globulin 3.8 g/dL (2.5-4.5) 02/11/19 04:45 Albumin/Globulin Ratio 0.8 Ratio (1.1-2.1) L 02/11/19 04:45 Specimen Type Random urine 02/09/19 23:20 Urine Color Yellow (YELLOW) 02/09/19 23:20 Urine Appearance Clear (CLEAR) 02/09/19 23:20 Urine pH 5.0 (5.0 - 8.0) 02/09/19 23:20 Ur Specific [place] 1.020 (1.000-1.030) 02/09/19 23:20 Urine Protein 2+ (NEGATIVE) 02/09/19 23:20 Urine Glucose (UA) 3+ (NEGATIVE) 02/09/19 23:20 Urine Ketones 1+ (NEGATIVE) 02/09/19 23:20 Urine Occult Blood 1+ (NEGATIVE) 02/09/19 23:20 Urine Nitrite Negative (NEGATIVE) 02/09/19 23:20 Urine Bilirubin Negative (NEGATIVE) 02/09/19 23:20 Urine Urobilinogen Normal (NORMAL) 02/09/19 23:20 Ur Leukocyte Esterase 1+ (NEGATIVE) 02/09/19 23:20 Urine RBC 0-2 /HPF (0-3) 02/09/19 23:20 Urine WBC 0-2 /HPF (0-5) 02/09/19 23:20 Ur Squamous Epith Cells Negative /HPF (NEGATIVE) 02/09/19 23:20 Urine Bacteria Negative /HPF (NEGATIVE) 02/09/19 23:20 Ur Culture Indicated? No/not indicated 02/09/19 23:20 Influenza Type A (PCR) Negative (NEGATIVE) 02/08/19 12:35 Influenza Type B (PCR) Negative (NEGATIVE) 02/08/19 12:35 - Plan (1) COPD (chronic obstructive pulmonary disease) with acute bronchitis Status: Acute Plan: resp consult. cxr. iv abtx, supplemental o2. sputum culture, verify home medication. iv solu medrol, budesonide, duo nebs, robitussin (2) Arthritis Status: Acute
[2019-02-11] MEDS: HumuLIN R SUBCUT PRN (17:07)
[2019-02-11] MEDS: SNACK - Diabetic Appropriate PO SCH (20:50)
[2019-02-11] MEDS ORDERED: COLACE CAP 100 MG PO SCH (21:00)
[2019-02-11] MEDS: MILK OF MAGNESIA PO SCH (21:26)
[2019-02-11] MEDS: SINGULAIR TAB 10 MG PO SCH (21:26)
[2019-02-12] MEDS: DUONEB 0.5 MG/3 MG NEB SCH ×4 (01:30→12:05)
[2019-02-12 05:20] LABS: BASOPHILS % (AUTO) 0.4 % (0.2-1.0); EOSINOPHILS # (AUTO) 0.2 x10^3/uL (0.0-0.2); EOSINOPHILS % (AUTO) 1.8 % (0.9-2.9); HEMATOCRIT 33.1 % (42.0-54.0); HEMOGLOBIN 10.9 g/dL (13.5-18.0); LYMPHOCYTES # (AUTO) 2.8 X10^3/uL (1.3-2.9); LYMPHOCYTES % (AUTO) 32.8 % (21.0-51.0); MEAN CORPUSCULAR HEMOGLOBIN 29.1 pg (27.0-34.0); MEAN CORPUSCULAR VOLUME 88.2 fL (80.0-100.0); MEAN PLATELET VOLUME 11.2 fL (7.4-11.0); MONOCYTES # (AUTO) 0.9 x10^3/uL (0.3-0.8); MONOCYTES % (AUTO) 10.6 % (0.0-13.0); NEUTROPHILS # (AUTO) 4.6 x10^3/uL (2.2-4.8); NEUTROPHILS % (AUTO) 54.4 % (42.0-75.0); PLATELET COUNT 156 X10^3/uL (150.0-450.0); RED BLOOD COUNT 3.76 X10^6/uL (4.7-6.0); RED CELL DISTRIBUTION WIDTH 13.4 % (11.6-16.5); WHITE BLOOD COUNT 8.5 X10^3/uL (3.6-10.0)
[2019-02-12 05:31] LABS: ALBUMIN 2.9 g/dL (3.4-5.0); CALCIUM 8.8 mg/dL (8.5-10.1); CARBON DIOXIDE 32.7 mmol/L (21-32); COR CA(FOR HYPOALB) 9.7 mg/dL (8.5-10.1); CREATININE 1.47 mg/dL (0.70-1.30); TOTAL PROTEIN 6.4 g/dL (6.4-8.2)
[2019-02-12] MEDS: NEURONTIN CAP 400 MG PO SCH (06:44)
[2019-02-12] MEDS: PULMICORT NEB TX 0.5 MG NEB SCH (08:04)
[2019-02-12] MEDS: BROVANA IN SCH (08:17)
[2019-02-12] MEDS ORDERED: LEXAPRO ONE (08:47)
[2019-02-12] MEDS: KLONOPIN TAB 1 MG PO SCH (08:58)
[2019-02-12] MEDS: MILK OF MAGNESIA PO SCH (08:58)
[2019-02-12] MEDS: LEVAQUIN PREMIX IV 750 MG 750 MG/150 ML BAG IV SCH (08:59)
[2019-02-12] MEDS: LEXAPRO PO SCH (08:59)
[2019-02-12] MEDS: LOVENOX INJ 40 MG SYR SC SCH (08:59)
[2019-02-12] MEDS: NexIUM PO SCH (08:59)
[2019-02-12 12:41] VITALS: BP 102/56
== END 2019-02-12 12:30 | disposition home health service (06) ==
LOC: MED/SURG 12:15 → ER 12:15 → MED/SURG 16:25
PROVIDERS: ADMIT Internal Medicine; ATTEND Internal Medicine
DX: M19.90 Unspecified osteoarthritis, unspecified site; J20.8 Acute bronchitis due to other specified organisms; R26.89 Other abnormalities of gait and mobility; E78.2 Mixed hyperlipidemia; J44.1 Chronic obstructive pulmonary disease with (acute) exacerbation; R73.09 Other abnormal glucose; R06.02 Shortness of breath; I10 Essential (primary) hypertension; K21.9 Gastro-esophageal reflux disease without esophagitis
CPT/HCPCS: 36415; 36600; 71010; 71045; 80053; 81001; 82803; 82947; 83036; 83735; 85025; 87040; 87070; 87205; 87502; 94640; 94760; 96365; 96372; 96374; 96375; 97110; 97163; 97166; 97530; 99284; A4222; G0378; J1650; J1815; J1956; J2405; J2930; J3475; J7050; J7620; J7626